=== PATIENT | male | born 1935 | race Caucasian/White ===

== ENCOUNTER → 2016-04-11 | Outpatient (CLI) | payer OTHER ==
[~2016-04-11] MED LIST: ACET-1256 PO; ALL300 PO; ALLO300T2 PO; ATOR-26 PO; CLC6 PO; DOCU-94 PO; DUTA0.5C PO; FERR1CAP2 PO; FURO-85 PO; GABA-113 PO; GLIM4TAB2 PO; ISOS60TA2 PO; LEVO100T7 PO; LEVO75TA5 PO; LOSA100T65 PO; LSX40 PO; NRN600 PO; NRV/10 PO; NTRGSL/4 PO; OXGN; OXYC5TAB PO; PHEN-1043 PO; POTA10CA28 PO; PRLSR20 PO; PSYL0.524 PO; SITA50TA3 PO; TPRSR/50 PO; WARF2.5T8 PO; WARF5TAB7 PO
--- NOTE | 2016-04-11 12:36 | DIAGNOSTIC IMAGING REPORT ---
MRI OF THE LUMBAR SPINE WITHOUT IV CONTRAST CLINICAL HISTORY: Chronic low back pain. COMPARISON STUDY: MRI of the lumbar spine dated 08/27/2014. TECHNIQUE: MRI of the lumbar spine is performed utilizing various T1 and T2-weighted sequences in the axial and sagittal planes. IV contrast was not administered for this examination. FINDINGS: Lumbar spine: Vertebral body height is maintained throughout the lumbar spine. There is minimal retrolisthesis of L1-L2 and L2-L3. Minimal anterolisthesis is present at L4-L5. Small anterior osteophytes are seen throughout. The transverse and spinous processes appear intact. There is no evidence of spondylolysis. No destructive bony lesion is seen. Chronic degenerative endplate change is present at L1-L2, L2-L3, and L3-L4. Mild endplate edema is identified at L1-L2. A Schmorl's node is seen in the inferior endplate of L1. Intervertebral discs: There is degenerative disc desiccation and loss of height throughout the lumbar spine. Loss of height is greatest at L2-L3 through L4-L5. Spinal cord: Partially imaged spinal cord is normal in morphology and signal intensity. The conus medullaris terminates at the level of L1. The nerve roots of the cauda equina are normal in morphology. L1-L2: There is broad-based posterior disc bulge eccentric to the right. There is no significant compromise of the central canal. There is bilateral subarticular stenosis, right greater than left with probable impingement on the exiting bilateral L1 nerve root. Facet arthropathy causes mild bilateral neural foraminal stenosis. L2-L3: There is a small posterior disc bulge with annular fissure. In conjunction with hypertrophy of the ligamentum flavum there is mild acquired compromise of the central canal at this level. The minimum AP diameter measures up to 9.5 mm. There is bilateral subarticular stenosis with possible impingement on the exiting left L2 nerve root. Facet arthropathy causes mild bilateral neural foraminal stenosis. L3-L4: There is a small posterior disc bulge with annular fissure. In conjunction with hypertrophy of the ligamentum flavum there is mild acquired compromise of the central canal at this level. The minimum AP canal diameter measures 7.5 mm. There is mild bilateral subarticular stenosis. Facet arthropathy causes moderate right greater than left neural foraminal stenosis. There may be impingement on the exiting right L3 nerve root. L4-L5: There is a small posterior disc bulge with annular fissure. In conjunction with hypertrophy of the ligamentum flavum there is mild to moderate central canal stenosis at this level. The minimum AP diameter measures 8 mm. There is bilateral subarticular stenosis. There may be impingement on the exiting bilateral L4 nerve roots. Facet arthropathy causes mild bilateral neural foraminal stenosis. L5-S1: There is no significant acquired compromise of the central canal. Facet arthropathy causes bilateral neural foraminal stenosis. Facet joint effusions are identified. Soft tissues: There is fatty atrophy of the paraspinous musculature. The retroperitoneal structures are grossly unremarkable but incompletely evaluated. Cortical atrophy is noted in the partially imaged kidneys. IMPRESSION: 1. No acute bony abnormality is seen. 2. There is no large disc herniation. 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 See discussion for detailed level by level analysis. Findings are similar to the 2015 examination. 3. Degenerative disc disease as above. Endplate edema is identified at L1-L2. Dictated: 04/11/2016 11:42 AM Transcribed: 04/11/2016 12:35 PM Aramis Electronically signed by: Vj Palmer M.D. 04/11/2016 12:43 PM Dictated Date/Time: 04/11/2016 11:42 AM
== END | disposition home or self-care (01) ==
LOC: C.MRI 10:17
PROVIDERS: ATTEND Orthopaedic Surgery Orthopaedic Surgery of the Spine
DX: M54.5 Low back pain (principal)

== ENCOUNTER → 2016-04-24 | Outpatient (CLI) | payer OTHER | END | disposition home or self-care (01) | LOC: C.LABMFLN 13:29 | PROVIDERS: ATTEND Family Medicine | DX: E03.9 Hypothyroidism, unspecified (principal) ==

== ENCOUNTER → 2016-05-17 | Outpatient (CLI) | payer OTHER ==
[2016-05-17 14:23] LABS: URINE APPEARANCE CLOUDY (CLEAR); URINE BILIRUBIN NEG (NEG); URINE COLOR YELLOW; URINE NITRITE NEG (NEG); URINE SPECIFIC GRAVITY 1.015 (1.000-1.030); UROBILINOGEN NEG (NEG)
[2016-05-17 14:34] LABS: MANUAL MICROSCOPIC REQUIRED? NO; REVIEW REQ? NO
[2016-05-17 14:35] LABS: SULFASALICYLIC ACID POS (NEG)
== END | disposition home or self-care (01) ==
LOC: C.LABMFLN 09:21
PROVIDERS: ATTEND Urology
DX: R39.9 Unspecified symptoms and signs involving the genitourinary system (principal)

== ENCOUNTER → 2016-05-29 | Outpatient (CLI) | payer OTHER ==
[2016-05-29 18:19] LABS: BASO % 0.4 %; BASO ABS # 0.03 K/uL (0-0.2); COMPLETE YES; EOS % 7.4 %; HEMATOCRIT 34.9 % (42-52); IG% 0.4 %; LYMPH % 33.6 %; LYMPH ABS # 2.51 K/uL (1.2-3.4); MEAN CELL VOLUME 92.8 fL (80-100); MEAN CORPUSCULAR HEMOGLOBIN 30.6 pg (25-34); MEAN PLATELET VOLUME 11.2 fL (7.4-10.4); MONO % 9.5 %; NEUT % 48.7 %; PLATELET COUNT 284 K/uL (130-400); RED BLOOD COUNT 3.76 M/uL (4.7-6.1); WHITE BLOOD COUNT 7.47 K/uL (4.8-10.8)
[2016-05-29 18:47] LABS: BLOOD UREA NITROGEN 54 mg/dl (7-18); BUN/CREATININE RATIO 18.8 (10-20); CALCIUM 8.9 mg/dl (8.5-10.1); CARBON DIOXIDE 33 mmol/L (21-32); CHLORIDE 100 mmol/L (98-107); GLUCOSE 232 mg/dl (70-99); MAGNESIUM 2.4 mg/dl (1.8-2.4); POTASSIUM 4.6 mmol/L (3.5-5.1); SODIUM 141 mmol/L (136-145)
[2016-05-29 18:53] LABS: TOTAL IRON BINDING CAPACITY 269 mcg/dl (250-450); URIC ACID 5.8 mg/dl (2.6-7.2)
== END | disposition home or self-care (01) ==
LOC: C.LABMFLN 14:40
PROVIDERS: ATTEND Family Medicine
DX: M10.9 Gout, unspecified (principal); I48.91 Unspecified atrial fibrillation; I10 Essential (primary) hypertension; E03.9 Hypothyroidism, unspecified; E11.43 Type 2 diabetes mellitus with diabetic autonomic (poly)neuropathy; E11.42 Type 2 diabetes mellitus with diabetic polyneuropathy; I50.9 Heart failure, unspecified; E78.5 Hyperlipidemia, unspecified; D64.9 Anemia, unspecified

== ENCOUNTER → 2016-06-12 | Outpatient (CLI) | payer OTHER ==
[~2016-06-12] VITALS: Ht 165.1 cm; Wt 87.5 kg
[~2016-06-12] MED LIST changes: +ACET-1311 PO; +AMOX1TAB43 PO; +AMOX875T PO; +FERR1TAB13 PO; +MOMLX PO; +MORP1CAP91 PO; +RXC5 PO; +SODIENE PR
[2016-06-12 14:51] VITALS: Ht 165.1 cm; Wt 87.5 kg
--- NOTE | 2016-06-12 15:48 | PAT Medication Instructions ---
Service Date Jun 12, 2016. Current Home Medication List Acetaminophen (Tylenol), 1,000 MG PO Q6 PRN for Headache or Pain Allopurinol (Allopurinol), 300 MG PO QPM Amlodipine Besylate (Amlodipine Besylate), 10 MG PO QAM Atorvastatin (Lipitor), 80 MG PO HS Colchicine (Colcrys), 0.6 MG PO prn Ferrous Fumarate-Iron Polysacc (Integra F), 1 CAP PO QAM Furosemide (Lasix), 60 MG PO BID Gabapentin (Neurontin), 300 MG PO TID Glimepiride (Glimepiride), 4 MG PO BID Isosorbide Mononitrate (Imdur Ext Rel), 60 MG PO QAM Levothyroxine Sodium (Levothyroxine Sodium), 1 TAB PO QAM Losartan Potassium (Cozaar), 100 MG PO QAM Metoprolol Succinate (Metoprolol Succinate ER), 50 MG PO QAM Nitroglycerin (Nitrostat), 0.4 MG PO UD Omeprazole (Prilosec), 20 MG PO QAM Potassium Chloride (Micro-K Ext Rel), 10 MEQ PO BID Psyllium (Metamucil), 1 DOSE PO QAM Sitagliptin (Januvia), 50 MG PO QAM Warfarin Sod (Jantoven), 5 MG PO QPM Medication Instructions For Your Scheduled Surgery Colchicine (Colcrys), 0.6 MG PO prn (not taking currently) Nitroglycerin (Nitrostat), 0.4 MG PO UD (if needed) Warfarin Sod (Jantoven), 5 MG PO QPM (surgeon's office will call with instructions) - Hold the following medications the morning of surgery: Sitagliptin (Januvia), 50 MG PO QAM Potassium Chloride (Micro-K Ext Rel), 10 MEQ PO BID Psyllium (Metamucil), 1 DOSE PO QAM Losartan Potassium (Cozaar), 100 MG PO QAM Glimepiride (Glimepiride), 4 MG PO BID Furosemide (Lasix), 60 MG PO BID Ferrous Fumarate-Iron Polysacc (Integra F), 1 CAP PO QAM - Take the following medications the morning of surgery with a sip of water: Omeprazole (Prilosec), 20 MG PO QAM Metoprolol Succinate (Metoprolol Succinate ER), 50 MG PO QAM Isosorbide Mononitrate (Imdur Ext Rel), 60 MG PO QAM Levothyroxine Sodium (Levothyroxine Sodium), 1 TAB PO QAM Gabapentin (Neurontin), 300 MG PO TID Amlodipine Besylate (Amlodipine Besylate), 10 MG PO QAM Acetaminophen (Tylenol), 1,000 MG PO Q6 PRN for Headache or Pain (if needed) - Take the following medications as scheduled the night before surgery: Potassium Chloride (Micro-K Ext Rel), 10 MEQ PO BID Glimepiride (Glimepiride), 4 MG PO BID Gabapentin (Neurontin), 300 MG PO TID Furosemide (Lasix), 60 MG PO BID Atorvastatin (Lipitor), 80 MG PO HS Allopurinol (Allopurinol), 300 MG PO QPM Acetaminophen (Tylenol), 1,000 MG PO Q6 PRN for Headache or Pain If you have any questions please call us at [phone] or [phone] ( Masha) or [phone]
[2016-06-12 16:20] LABS: BASO % 0.3 %; BASO ABS # 0.02 K/uL (0-0.2); COMPLETE YES; EOS % 10.2 %; HEMATOCRIT 33.7 % (42-52); IG% 0.3 %; LYMPH % 37.9 %; LYMPH ABS # 2.59 K/uL (1.2-3.4); MEAN CELL VOLUME 94.9 fL (80-100); MEAN CORPUSCULAR HEMOGLOBIN 30.4 pg (25-34); MEAN PLATELET VOLUME 12.1 fL (7.4-10.4); MONO % 5.7 %; NEUT % 45.6 %; PLATELET COUNT 185 K/uL (130-400); RED BLOOD COUNT 3.55 M/uL (4.7-6.1); WHITE BLOOD COUNT 6.84 K/uL (4.8-10.8)
[2016-06-12 16:23] LABS: URINE APPEARANCE CLEAR (CLEAR); URINE BILIRUBIN NEG (NEG); URINE COLOR YELLOW; URINE EPITHELIAL CELL AUTO 0-5 /lpf (0-5); URINE NITRITE NEG (NEG); URINE PH 7.5 (4.5-7.5); URINE SPECIFIC GRAVITY 1.008 (1.000-1.030); UROBILINOGEN NEG (NEG); ZZUR CULT IF INDIC CLEAN CATCH NO
[2016-06-12 16:45] LABS: MANUAL MICROSCOPIC REQUIRED? NO; REVIEW REQ? NO; SULFASALICYLIC ACID POS (NEG)
[2016-06-12 16:54] LABS: BUN/CREATININE RATIO 20.7 (10-20); CALCIUM 9.4 mg/dl (8.5-10.1); CREATININE 2.3 mg/dl (0.60-1.40); POTASSIUM 4.2 mmol/L (3.5-5.1)
--- NOTE | 2016-07-10 07:28 | History & Physical Bridge Note ---
H&P Re-Evaluation Bridge Note: I have examined the patient, reviewed the History & Physical and in the interval since the performance of the History & Physical I have noted the following changes of clinical significance: No changes noted
== END | disposition home or self-care (01) ==
LOC: C.LAB 08:00 → EDSTATUS 07-10 07:45
PROVIDERS: ATTEND Orthopaedic Surgery Orthopaedic Surgery of the Spine
DX: Z01.810 Encounter for preprocedural cardiovascular examination (principal); Z01.812 Encounter for preprocedural laboratory examination

== ENCOUNTER → 2016-06-15 | Outpatient (CLI) | payer OTHER ==
[~2016-06-15] MED LIST changes: -ACET-1311 PO; -AMOX1TAB43 PO; -AMOX875T PO; -DOCU-94 PO; -DUTA0.5C PO; -FERR1TAB13 PO; -LEVO75TA5 PO; -MOMLX PO; -MORP1CAP91 PO; -NRN600 PO; -OXYC5TAB PO; -PHEN-1043 PO; -RXC5 PO; -SODIENE PR
[2016-06-15 14:00] LABS: BLOOD UREA NITROGEN 52 mg/dl (7-18); BUN/CREATININE RATIO 19.9 (10-20); CALCIUM 8.9 mg/dl (8.5-10.1); CARBON DIOXIDE 27 mmol/L (21-32); CHLORIDE 103 mmol/L (98-107); GLUCOSE 328 mg/dl (70-99); POTASSIUM 4.4 mmol/L (3.5-5.1); SODIUM 139 mmol/L (136-145)
[2016-06-15 14:13] LABS: BETA-HYDROXYBUTYRATE 0.97 mg/dL (0.2-2.81)
== END | disposition home or self-care (01) ==
LOC: C.LABMFLN 09:12
PROVIDERS: ATTEND Family Medicine
DX: I25.10 Atherosclerotic heart disease of native coronary artery without angina pectoris (principal); I48.91 Unspecified atrial fibrillation

== ENCOUNTER → 2016-06-20 | Outpatient (CLI) | payer OTHER ==
[2016-06-20 14:03] LABS: BLOOD UREA NITROGEN 42 mg/dl (7-18); BUN/CREATININE RATIO 20.1 (10-20); CALCIUM 9.2 mg/dl (8.5-10.1); CARBON DIOXIDE 29 mmol/L (21-32); CHLORIDE 107 mmol/L (98-107); GLUCOSE 188 mg/dl (70-99); POTASSIUM 4.2 mmol/L (3.5-5.1); SODIUM 144 mmol/L (136-145)
== END | disposition home or self-care (01) ==
LOC: C.LABMFLN 07:36
PROVIDERS: ATTEND Family Medicine
DX: I50.9 Heart failure, unspecified (principal); N25.9 Disorder resulting from impaired renal tubular function, unspecified; I48.91 Unspecified atrial fibrillation

== ENCOUNTER → 2016-07-28 | Outpatient (CLI) | payer OTHER ==
[~2016-07-28] MED LIST changes: +ACET-1311 PO; +AMOX1TAB43 PO; +AMOX875T PO; +FERR1TAB13 PO; +MOMLX PO; +MORP1CAP91 PO; +RXC5 PO; +SODIENE PR
[2016-07-28 13:10] LABS: BASO % 0.3 %; BASO ABS # 0.02 K/uL (0-0.2); COMPLETE YES; EOS % 6.9 %; HEMATOCRIT 33.2 % (42-52); IG% 0.3 %; LYMPH % 28.6 %; LYMPH ABS # 2.06 K/uL (1.2-3.4); MEAN CELL VOLUME 95.4 fL (80-100); MEAN CORPUSCULAR HEMOGLOBIN 30.5 pg (25-34); MEAN CORPUSCULAR HGB CONC 31.9 g/dl (32-36); MEAN PLATELET VOLUME 12.1 fL (7.4-10.4); MONO % 11.4 %; NEUT % 52.5 %; PLATELET COUNT 184 K/uL (130-400); RED BLOOD COUNT 3.48 M/uL (4.7-6.1); WHITE BLOOD COUNT 7.21 K/uL (4.8-10.8)
[2016-07-28 13:34] LABS: CALCIUM 9.1 mg/dl (8.5-10.1)
[2016-07-28 13:39] LABS: ESTIMATED AVERAGE GLUCOSE 177 mg/dl; HA1C FLAG Normal (Normal)
[2016-07-28 13:47] LABS: ALT/SGPT 35 U/L (12-78); AST/SGOT 32 U/L (15-37); BLOOD UREA NITROGEN 37 mg/dl (7-18); BUN/CREATININE RATIO 19.6 (10-20); CARBON DIOXIDE 29 mmol/L (21-32); CHLORIDE 107 mmol/L (98-107); CHOLESTEROL 133 mg/dl (0-200); GLUCOSE 143 mg/dl (70-99); POTASSIUM 3.8 mmol/L (3.5-5.1); SODIUM 143 mmol/L (136-145); TRIGLYCERIDES 177 mg/dl (0-150); VERY LOW DENSITY LIPOPROT CALC 35 mg/dl
[2016-07-28 13:57] LABS: ALB/GLOB RATIO 0.9 (0.9-2); ALKALINE PHOSPHATASE 111 U/L (45-117); CHOLESTEROL/HDL RATIO 3.7; HDL CHOLESTEROL 36 mg/dl; LDL CHOLESTEROL CALCULATED 62 mg/dl
== END | disposition home or self-care (01) ==
LOC: C.LABMFLN 08:53
PROVIDERS: ATTEND Family Medicine
DX: I48.91 Unspecified atrial fibrillation (principal); E78.00 Pure hypercholesterolemia, unspecified; I10 Essential (primary) hypertension; E03.9 Hypothyroidism, unspecified; E11.43 Type 2 diabetes mellitus with diabetic autonomic (poly)neuropathy

== ENCOUNTER → 2016-07-31 | Outpatient (CLI) | payer OTHER ==
[2016-07-31 13:40] LABS: BLOOD UREA NITROGEN 38 mg/dl (7-18); BUN/CREATININE RATIO 17.2 (10-20); CARBON DIOXIDE 28 mmol/L (21-32); CHLORIDE 105 mmol/L (98-107); GLUCOSE 282 mg/dl (70-99); POTASSIUM 4.1 mmol/L (3.5-5.1); SODIUM 142 mmol/L (136-145)
[2016-07-31 13:42] LABS: URINE TOTAL PROTEIN 62.3 mg/dl (0-11.9)
[2016-07-31 13:46] LABS: URINE APPEARANCE CLEAR (CLEAR); URINE BILIRUBIN NEG (NEG); URINE COLOR YELLOW; URINE EPITHELIAL CELL AUTO 0-5 /lpf (0-5); URINE NITRITE NEG (NEG); URINE SPECIFIC GRAVITY 1.013 (1.000-1.030); UROBILINOGEN NEG (NEG)
[2016-07-31 13:49] LABS: FERRITIN 82.3 ng/ml (8.0-388.0); TOTAL IRON BINDING CAPACITY 274 mcg/dl (250-450)
[2016-07-31 13:52] LABS: MANUAL MICROSCOPIC REQUIRED? NO; REVIEW REQ? NO
--- NOTE | 2016-08-07 09:15 | CODING QUERY MEDICAL NECESSITY ---
CQSUPPORTING DIAGNOSIS NEEDED A supporting diagnosis is required for the test/procedure performed on this patient in order for us to be reimbursed by the patient's insurance. Please provide a supporting diagnosis for the following test/procedure listed below next to the test name along with your signature. *If there is no additional diagnosis for this patient that would support the following test/procedure please document that below next to the test/procedure. Test(s)/Procedure(s) that require a supporting diagnosis: THERESA 07/31/16 VITAMIN D TEST Provider Signature: Date: Thank you Alicja Mcmullen Health Information Management Once completed, please kindly fax back to [phone] For questions please call [phone]
== END | disposition home or self-care (01) ==
LOC: C.LABMFLN 08:55
PROVIDERS: ATTEND Internal Medicine Nephrology
DX: N17.9 Acute kidney failure, unspecified (principal); D64.9 Anemia, unspecified; E55.9 Vitamin D deficiency, unspecified

== ENCOUNTER → 2016-09-28 | Outpatient (CLI) | payer OTHER ==
[~2016-09-28] MED LIST changes: -ACET-1311 PO; -AMOX1TAB43 PO; -AMOX875T PO; -FERR1TAB13 PO; -MOMLX PO; -MORP1CAP91 PO; -RXC5 PO; -SODIENE PR
[2016-09-28 13:16] LABS: BASO % 0.2 %; BASO ABS # 0.01 K/uL (0-0.2); COMPLETE YES; EOS % 7.1 %; HEMATOCRIT 31.9 % (42-52); LYMPH % 34.4 %; LYMPH ABS # 1.88 K/uL (1.2-3.4); MEAN CELL VOLUME 96.7 fL (80-100); MEAN CORPUSCULAR HEMOGLOBIN 30.3 pg (25-34); MEAN CORPUSCULAR HGB CONC 31.3 g/dl (32-36); MEAN PLATELET VOLUME 11.8 fL (7.4-10.4); MONO % 9.3 %; PLATELET COUNT 160 K/uL (130-400); WHITE BLOOD COUNT 5.46 K/uL (4.8-10.8)
[2016-09-28 13:25] LABS: BLOOD UREA NITROGEN 37 mg/dl (7-18); CARBON DIOXIDE 27 mmol/L (21-32); CHLORIDE 108 mmol/L (98-107); GLUCOSE 277 mg/dl (70-99); POTASSIUM 3.9 mmol/L (3.5-5.1); SODIUM 142 mmol/L (136-145)
[2016-09-28 13:32] LABS: CALCIUM 9.2 mg/dl (8.5-10.1)
== END | disposition home or self-care (01) ==
LOC: C.LABMFLN 08:27
PROVIDERS: ATTEND Family Medicine
DX: R06.00 Dyspnea, unspecified (principal); I48.91 Unspecified atrial fibrillation

== ENCOUNTER → 2016-10-26 | Outpatient (CLI) | payer OTHER ==
[2016-10-26 14:29] LABS: BLOOD UREA NITROGEN 34 mg/dl (7-18); BUN/CREATININE RATIO 16.2 (10-20); CALCIUM 8.8 mg/dl (8.5-10.1); CARBON DIOXIDE 28 mmol/L (21-32); CHLORIDE 106 mmol/L (98-107); GLUCOSE 166 mg/dl (70-99); POTASSIUM 3.9 mmol/L (3.5-5.1); SODIUM 144 mmol/L (136-145)
[2016-10-26 14:31] LABS: BASO % 0.2 %; BASO ABS # 0.01 K/uL (0-0.2); COMPLETE YES; EOS % 7.4 %; HEMATOCRIT 35.1 % (42-52); IG% 0.4 %; LYMPH % 31.3 %; LYMPH ABS # 1.69 K/uL (1.2-3.4); MEAN CELL VOLUME 95.9 fL (80-100); MEAN CORPUSCULAR HEMOGLOBIN 30.6 pg (25-34); MEAN CORPUSCULAR HGB CONC 31.9 g/dl (32-36); MEAN PLATELET VOLUME 12.8 fL (7.4-10.4); MONO % 11.1 %; NEUT % 49.6 %; PLATELET COUNT 147 K/uL (130-400); RED BLOOD COUNT 3.66 M/uL (4.7-6.1)
[2016-10-26 14:39] LABS: TOTAL IRON BINDING CAPACITY 319 mcg/dl (250-450)
[2016-10-27 07:59] LABS: ESTIMATED AVERAGE GLUCOSE 180 mg/dl; HA1C FLAG Normal (Normal)
--- NOTE | 2016-11-09 07:18 | CODING QUERY MEDICAL NECESSITY ---
SUPPORTING DIAGNOSIS NEEDED A supporting diagnosis is required for the test/procedure performed on this patient in order for us to be reimbursed by the patient's insurance. Please provide a supporting diagnosis for the following test/procedure listed below next to the test name along with your signature. *If there is no additional diagnosis for this patient that would support the following test/procedure please document that below next to the test/procedure. Test(s)/Procedure(s) that require a supporting diagnosis: * VITAMIN D, 25-HYDROXY DIAGNOSIS: Provider Signature: Date: Thank you Emma Stevens [employer] Once completed, please kindly fax back to [phone] For questions please call [phone]
== END | disposition home or self-care (01) ==
LOC: C.LABMFLN 08:02
PROVIDERS: ATTEND Family Medicine
DX: E78.00 Pure hypercholesterolemia, unspecified (principal); I10 Essential (primary) hypertension; D64.9 Anemia, unspecified; E03.9 Hypothyroidism, unspecified; I48.0 Paroxysmal atrial fibrillation; E11.43 Type 2 diabetes mellitus with diabetic autonomic (poly)neuropathy; E55.9 Vitamin D deficiency, unspecified

== ENCOUNTER 2016-12-27 07:20 | Day surgery (SDC) | payer OTHER ==
[2016-12-05 13:30] VITALS: BMI 31.0
[2016-12-05 14:01] LABS: BASO % 0.4 %; BASO ABS # 0.03 K/uL (0-0.2); COMPLETE YES; EOS % 3.7 %; HEMATOCRIT 38.8 % (42-52); IG% 0.3 %; LYMPH % 35.8 %; MEAN CELL VOLUME 93.3 fL (80-100); MEAN CORPUSCULAR HEMOGLOBIN 29.8 pg (25-34); MONO % 7.9 %; NEUT % 51.9 %; PLATELET COUNT 181 K/uL (130-400); RED BLOOD COUNT 4.16 M/uL (4.7-6.1); WHITE BLOOD COUNT 6.98 K/uL (4.8-10.8)
--- NOTE | 2016-12-05 14:17 | PAT Medication Instructions ---
Service Date Dec 05, 2016. Current Home Medication List Acetaminophen (Tylenol), 1,000 MG PO Q6 PRN for Headache or Pain Allopurinol (Allopurinol), Unknown Dose PO QPM Amlodipine Besylate (Amlodipine Besylate), 10 MG PO QAM Atorvastatin (Lipitor), 80 MG PO HS Colchicine (Colcrys), 0.6 MG PO prn Ferrous Fumarate-Iron Polysacc (Integra F), 1 CAP PO QAM Furosemide (Furosemide), 1 TAB PO BID Gabapentin (Neurontin), 300 MG PO TID Glimepiride (Glimepiride), 4 MG PO BID Isosorbide Mononitrate (Imdur Ext Rel), 60 MG PO QAM Levothyroxine Sodium (Levothyroxine Sodium), 1 TAB PO QAM Losartan Potassium (Cozaar), 100 MG PO QAM Metoprolol Succinate (Metoprolol Succinate ER), 50 MG PO QAM Nitroglycerin (Nitrostat), 0.4 MG PO UD Omeprazole (Prilosec), 20 MG PO QAM Psyllium (Metamucil), 1 DOSE PO QAM Sitagliptin (Januvia), 50 MG PO QAM Warfarin Sod (Jantoven), 5 MG PO [id number] Warfarin Sod (Jantoven), 2.5 MG PO MONDAYS Medication Instructions For Your Scheduled Surgery - Check with surgeon/hat finishing materials preparer for instructions: Warfarin Sod (Jantoven), 5 MG PO [id number] Warfarin Sod (Aprtoven), 2.5 MG PO MONDAYS - Hold the following medications 24 hours prior to surgery: Colchicine (Colcrys), 0.6 MG PO prn - Hold the following medications the morning of surgery: Ferrous Fumarate-Iron Polysacc (Integra F), 1 CAP PO QAM Furosemide (Furosemide), 1 TAB PO BID Glimepiride (Glimepiride), 4 MG PO BID Losartan Potassium (Cozaar), 100 MG PO QAM Psyllium (Metamucil), 1 DOSE PO QAM Sitagliptin (Januvia), 50 MG PO QAM - Take the following medications the morning of surgery with a sip of water: Omeprazole (Prilosec), 20 MG PO QAM Metoprolol Succinate (Metoprolol Succinate ER), 50 MG PO QAM Nitroglycerin (Nitrostat), 0.4 MG PO UD Isosorbide Mononitrate (Imdur Ext Rel), 60 MG PO QAM Levothyroxine Sodium (Levothyroxine Sodium), 1 TAB PO QAM Gabapentin (Neurontin), 300 MG PO TID Amlodipine Besylate (Amlodipine Besylate), 10 MG PO QAM Acetaminophen (Tylenol), 1,000 MG PO Q6 PRN for Headache or Pain (if needed) - Take the following medications as scheduled the night before surgery: Nitroglycerin (Nitrostat), 0.4 MG PO UD Glimepiride (Glimepiride), 4 MG PO BID Gabapentin (Neurontin), 300 MG PO TID Furosemide (Furosemide), 1 TAB PO BID Atorvastatin (Lipitor), 80 MG PO HS Allopurinol (Allopurinol), Unknown Dose PO QPM Acetaminophen (Tylenol), 1,000 MG PO Q6 PRN for Headache or Pain (if needed) If you have any questions please call us at [phone] or [phone] or [phone]
[2016-12-05 14:18] LABS: BUN/CREATININE RATIO 15.9 (10-20); CALCIUM 9.2 mg/dl (8.5-10.1); CREATININE 1.8 mg/dl (0.60-1.40); POTASSIUM 3.6 mmol/L (3.5-5.1)
[2016-12-05 14:24] LABS: URINE APPEARANCE CLEAR (CLEAR); URINE BILIRUBIN NEG (NEG); URINE COLOR YELLOW; URINE EPITHELIAL CELL AUTO 20-30 /lpf (0-5); URINE NITRITE NEG (NEG); URINE PH 6.5 (4.5-7.5); URINE SPECIFIC GRAVITY 1.015 (1.000-1.030); UROBILINOGEN NEG (NEG); ZZUR CULT IF INDIC CLEAN CATCH NO
[2016-12-05 14:34] LABS: MANUAL MICROSCOPIC REQUIRED? NO; REVIEW REQ? NO
[~2016-12-27] VITALS: Ht 162.6 cm; Wt 84.1 kg
[~2016-12-27 07:20] MED LIST changes: -ALLO300T2 PO; +CEFAZOLIN 2000 MG/60 ML D5W IV SCH; -FURO-85 PO; +LACTATED RINGER'S 1000ML 1,000 ML IV SCH; -OXGN; -POTA10CA28 PO
[2016-12-27 08:00] VITALS: BP 159/87; PULSE 49; TEMP 36.4; O2SAT 93; Ht 162.6 cm; Wt 84.1 kg
[2016-12-27] MEDS ORDERED: ALLO300T2 PO (08:04)
[2016-12-27] MEDS ORDERED: FENTANYL CITRATE INJ 50 MCG/1 ML 2 ML VIAL ONE (08:09)
[2016-12-27] MEDS ORDERED: MIDAZOLAM HCL 1 MG/ML 2ML VIAL ONE (08:09)
[2016-12-27] MEDS ORDERED: OXGN (08:10)
[2016-12-27 08:18] LABS: INR 1.9 (0.9-1.1); PARTIAL THROMBOPLASTIN RATIO 1.5; PROTHROMBIN TIME (PATIENT) 20.7 SECONDS (9.0-12.0)
--- NOTE | 2016-12-27 08:58 | DIAGNOSTIC IMAGING REPORT ---
CHEST ONE VIEW PORTABLE HISTORY: Crackles COMPARISON: Chest 08/17/2015. FINDINGS: No pneumothorax. The heart remains mildly enlarged. There is mild central pulmonary vascular congestion without overt edema. This remains unchanged. Punctate calcified granuloma within the left lung apex. Left shoulder prosthesis. No pleural effusions. Poststernotomy changes. IMPRESSION: No change in the mild cardiomegaly and mild central pulmonary vascular congestion without overt edema. Electronically signed by: Brett Braun M.D. 12/27/2016 8:57 AM Dictated Date/Time: 12/27/2016 8:42 AM
--- NOTE | 2016-12-27 09:37 | Progress Note ---
Progress Note Date of Service Dec 27, 2016. Progress Note Patient arrived today for scheduled L3 to S1 decompression and Iliac bolts with Dr. Riddle. Vitals were significant for O2 sats 85 to 88% on room air. Patient was afebrile. Patient reports new productive cough and exam was notable for crackles in right lower lobe. Oxygenation improved to 92% on 2-3 LPM NC. CXR was negative. Labs were notable for INR of 1.9 despite being off coumadin for 5 days. Decision made to reschedule surgery based on both elevated INR and new oxygen requirement in the setting of acute URI. Patient has home oxygen and was discharged with oxygen for trip home. Appointment made with , patient's primary care physician to be seen this afternoon at 3PM. In addition, PAT was contacted and they will call later today or tomorrow to set up an anesthesia follow-up appointment for next week. Patient to restart coumadin in the interim, but PAT will need to speak with cardiology to discuss whether a 5 day pause will be enough time off coumadin next time, since INR was higher than optimal for surgery today. Geovanna Velasquez MD, PhD Anesthesiology
== END 2016-12-27 09:25 | disposition home or self-care (01) ==
LOC: C.ACU 07:20
PROVIDERS: ATTEND Orthopaedic Surgery Orthopaedic Surgery of the Spine
DX: Z53.8 Procedure and treatment not carried out for other reasons (principal); J06.9 Acute upper respiratory infection, unspecified; D68.59 Other primary thrombophilia; Z79.01 Long term (current) use of anticoagulants

== ENCOUNTER → 2017-01-12 | Outpatient (CLI) | payer OTHER ==
[~2017-01-12] MED LIST changes: -ALL300 PO; +ALLO300T2 PO; -CEFAZOLIN 2000 MG/60 ML D5W IV SCH; -LACTATED RINGER'S 1000ML 1,000 ML IV SCH; +OXGN
[2017-01-12 17:44] LABS: BASO % 0.4 %; BASO ABS # 0.03 K/uL (0-0.2); COMPLETE YES; EOS % 5.9 %; HEMATOCRIT 36.8 % (42-52); IG% 0.4 %; LYMPH % 36.6 %; LYMPH ABS # 2.99 K/uL (1.2-3.4); MEAN CELL VOLUME 92.2 fL (80-100); MEAN CORPUSCULAR HEMOGLOBIN 30.8 pg (25-34); MEAN CORPUSCULAR HGB CONC 33.4 g/dl (32-36); MEAN PLATELET VOLUME 12.5 fL (7.4-10.4); MONO % 9.9 %; NEUT % 46.8 %; PLATELET COUNT 173 K/uL (130-400); RED BLOOD COUNT 3.99 M/uL (4.7-6.1); WHITE BLOOD COUNT 8.17 K/uL (4.8-10.8)
[2017-01-12 17:48] LABS: BLOOD UREA NITROGEN 45 mg/dl (7-18); BUN/CREATININE RATIO 21.5 (10-20); CARBON DIOXIDE 29 mmol/L (21-32); CHLORIDE 105 mmol/L (98-107); GLUCOSE 165 mg/dl (70-99); PHOSPHORUS 4.1 mg/dl (2.5-4.9); POTASSIUM 3.7 mmol/L (3.5-5.1); SODIUM 141 mmol/L (136-145)
[2017-01-12 18:01] LABS: URINE APPEARANCE CLEAR (CLEAR); URINE BILIRUBIN NEG (NEG); URINE COLOR YELLOW; URINE NITRITE NEG (NEG); URINE SPECIFIC GRAVITY 1.016 (1.000-1.030); UROBILINOGEN NEG (NEG)
[2017-01-12 18:02] LABS: MANUAL MICROSCOPIC REQUIRED? NO; REVIEW REQ? NO
[2017-01-12 18:07] LABS: URINE APPEARANCE CLEAR (CLEAR); URINE BILIRUBIN NEG (NEG); URINE COLOR YELLOW; URINE NITRITE NEG (NEG); URINE SPECIFIC GRAVITY 1.015 (1.000-1.030); UROBILINOGEN NEG (NEG)
[2017-01-12 18:08] LABS: MANUAL MICROSCOPIC REQUIRED? NO; REVIEW REQ? NO
== END | disposition home or self-care (01) ==
LOC: C.LABMFLN 14:45
PROVIDERS: ATTEND Orthopaedic Surgery Orthopaedic Surgery of the Spine
DX: M48.061 Spinal stenosis, lumbar region without neurogenic claudication (principal)

== ENCOUNTER → 2017-03-27 | Outpatient (CLI) | payer OTHER ==
[~2017-03-27] MED LIST changes: +ACET-1138 PO; -ACET-1256 PO; +ACET-1311 PO; +ALL300 PO; +ASPI81TA28 PO; +CHOL1000 PO; +COLC0.6T54 PO; +CPR/500 PO; -FERR1CAP2 PO; +FERR1TAB13 PO; +FERR324T15 PO; +FRS/40 PO; +FURO-85 PO; +GABA-1219 PO; +ISOS60TA25 PO; +MOMLX PO; -NTRGSL/4 PO; +NTRGSL/4 UT; +OMEP20CA9 PO; +ONGLYZA PO; +POLY335019 PO; +SITA50TA PO; +SODIENE PR; +TRAM-10 PO; +ULT50 PO; +WARF1TAB6 PO
[2017-04-04 18:32] LABS: FECAL OCCULT BLOOD #1 NEGATIVE (NEGATIVE); FECAL OCCULT BLOOD #2 NEGATIVE (NEGATIVE); FECAL OCCULT BLOOD #3 NEGATIVE (NEGATIVE)
== END | disposition home or self-care (01) ==
LOC: C.LABSPEC 18:02
PROVIDERS: ATTEND Family Medicine
DX: M10.9 Gout, unspecified (principal); I48.91 Unspecified atrial fibrillation; D64.9 Anemia, unspecified; M54.9 Dorsalgia, unspecified; E03.9 Hypothyroidism, unspecified

== ENCOUNTER → 2017-03-27 | Outpatient (CLI) | payer OTHER ==
[~2017-03-27] MED LIST changes: -ACET-1138 PO; -ALL300 PO; -ASPI81TA28 PO; -CHOL1000 PO; -COLC0.6T54 PO; -CPR/500 PO; -FERR324T15 PO; -FRS/40 PO; -FURO-85 PO; -GABA-1219 PO; -ISOS60TA25 PO; -NTRGSL/4 UT; -OMEP20CA9 PO; -ONGLYZA PO; -OXGN; -POLY335019 PO; -SITA50TA PO; -TRAM-10 PO; -ULT50 PO; -WARF1TAB6 PO
[2017-03-27 17:47] LABS: ALT/SGPT 21 U/L (12-78); BLOOD UREA NITROGEN 36 mg/dl (7-18); BUN/CREATININE RATIO 20.5 (10-20); CALCIUM 8.8 mg/dl (8.5-10.1); CARBON DIOXIDE 31 mmol/L (21-32); CHLORIDE 107 mmol/L (98-107); CREATININE 1.76 mg/dl (0.60-1.40); GLUCOSE 163 mg/dl (70-99); POTASSIUM 3.8 mmol/L (3.5-5.1); SODIUM 145 mmol/L (136-145)
[2017-03-27 17:57] LABS: ALB/GLOB RATIO 0.7 (0.9-2); ALKALINE PHOSPHATASE 161 U/L (45-117); AST/SGOT 25 U/L (15-37); TOTAL IRON BINDING CAPACITY 251 mcg/dl (250-450)
[2017-03-27 18:17] LABS: BASO % 0.3 %; BASO ABS # 0.02 K/uL (0-0.2); EOS % 6.3 %; HEMATOCRIT 27.2 % (42-52); IG% 0.7 %; LYMPH ABS # 1.62 K/uL (1.2-3.4); MEAN CELL VOLUME 96.1 fL (80-100); MEAN CORPUSCULAR HGB CONC 31.3 g/dl (32-36); MEAN PLATELET VOLUME 10.6 fL (7.4-10.4); MONO % 9.4 %; NEUT % 61.3 %; PLATELET COUNT 259 K/uL (130-400); RED BLOOD COUNT 2.83 M/uL (4.7-6.1); WHITE BLOOD COUNT 7.36 K/uL (4.8-10.8)
[2017-03-27 19:19] LABS: ANISOCYTOSIS PRESENT; COMPLETE YES; OVALOCYTES 1+
== END | disposition home or self-care (01) ==
LOC: C.LABMFLN 16:30
PROVIDERS: ATTEND Family Medicine
DX: M10.9 Gout, unspecified (principal); I48.91 Unspecified atrial fibrillation; D64.9 Anemia, unspecified; M54.9 Dorsalgia, unspecified; E03.9 Hypothyroidism, unspecified

== ENCOUNTER → 2017-04-18 | Outpatient (CLI) | payer OTHER ==
[2017-04-18 17:43] LABS: HEMATOCRIT 33.5 % (42-52); HEMOGLOBIN 10.8 g/dL (14.0-18.0)
[2017-04-18 18:15] LABS: BLOOD UREA NITROGEN 37 mg/dl (7-18); CALCIUM 9.4 mg/dl (8.5-10.1); CARBON DIOXIDE 32 mmol/L (21-32); CREATININE 2.04 mg/dl (0.60-1.40); GLUCOSE 118 mg/dl (70-99); POTASSIUM 4.7 mmol/L (3.5-5.1); SODIUM 139 mmol/L (136-145)
== END | disposition home or self-care (01) ==
LOC: C.LABMFLN 14:28
PROVIDERS: ATTEND Family Medicine
DX: I50.9 Heart failure, unspecified (principal); D64.9 Anemia, unspecified

== ENCOUNTER 2017-05-28 09:46 | Emergency (ER) | payer OTHER ==
[~2017-05-28] VITALS: Ht 165.1 cm; Wt 81.0 kg
[2017-05-28 09:59] VITALS: Ht 165.1 cm; Wt 81.0 kg
--- NOTE | 2017-05-28 10:40 | EMERGENCY ROOM VISIT NOTE ---
History Report prepared by Verito: Maverick Gilliam Under the Supervision of: Dr. Kb Hooper D.O. First contact with patient: 10:04 Chief Complaint: LEG PAIN,LEG INJURY Stated Complaint: PAIN DOWN LEFT LEG History of Present Illness The patient is a 82 year old male who presents to the Emergency Room with complaints of worsening sharp pain to the left leg that began two months ago. He has a past medical history of lower back surgery in January 2017. Since then , the patient has been having constant pain in his lower back and his left leg. However, over the past two days, his pain began to be more severe with associated numbness from his left hip to the knee. He has been taking Tramadol to try to help relieve his pain, and notes that it has helped. His pain is exacerbated with movement. He notes that he is dizzy as well. He denies any headaches, chest pain, shortness of breath, or abdominal pain. He has an appointment with Dr. Doshi in 1 week, and states that he cannot wait that long. He has not contacted his PCP for this issue. He is not currently on any Steroids. Source of History: patient Onset: 2 months ago Position: leg (left) Symptom Intensity: severe Quality: sharp Timing: worsening Associated Symptoms: + back pain (lower), + numbness, No headache, No chest pain, No SOB, No abdominal pain Note: He states that he is dizzy. Review of Systems See HPI for pertinent positives & negatives. A total of 10 systems reviewed and were otherwise negative. Past Medical & Surgical Medical Problems: (1) Atrial Fibrillation (2) BPH (benign prostatic hyperplasia) (3) Congestive Heart Failure Nos (4) Diabetes (5) Esophageal Reflux (6) Hypertension (7) Hypertension Nos (8) Lumbar stenosis with neurogenic claudication (9) Pneumonia Surgical Problems: (1) H/O prostatectomy (2) History of rotator cuff surgery Family History Diabetes mellitus Heart disease Hypertension Social History Smoking Status: Never Smoker Drug Use: none Marital Status: Housing Status: lives with significant other Occupation Status: retired Current/Historical Medications Scheduled Amlodipine Besylate (Amlodipine Besylate), 10 MG PO QAM Atorvastatin (Lipitor), 80 MG PO DAILY Colchicine (Colcrys), 0.6 MG PO DAILY Ferrous Fumarate (Ferrous Fumarate 324), 324 MG PO DAILY Furosemide (Lasix), 60 MG PO BID Gabapentin (Neurontin), 300 MG PO TID Glimepiride (Glimepiride), 4 MG PO BID Isosorbide Mononitrate (Imdur Ext Rel), 60 MG PO QAM Levothyroxine Sodium (Levothyroxine Sodium), 100 MCG PO QAM Losartan Potassium (Cozaar), 100 MG PO QAM Metoprolol Succinate (Metoprolol Succinate ER), 50 MG PO QAM Omeprazole (Prilosec), 20 MG PO QAM Sitagliptin (Januvia), 50 MG PO QAM Warfarin Sod (Jantoven), 5 MG PO DAILY Warfarin Sod (Jantoven), 1 MG PO UD Scheduled PRN Acetaminophen (Tylenol Extra Strength), 1,000 MG PO Q6 PRN for Pain Nitroglycerin (Nitrostat), 0.4 MG UT PRN PRN for Chest Pain Polyethylene Glycol 3350 (Miralax), 17 GM PO DAILY PRN for Constipation Tramadol (Ultram), 1-2 TABS PO Q6 PRN for Pain Allergies Coded Allergies: Adhesives (Verified Adverse Reaction, Intermediate, TEARS SKIN WITH TAPE- ARMS, 05/28/17) Colestipol (Verified Adverse Reaction, Mild, Sleepiness, 05/28/17) Simvastatin (Verified Adverse Reaction, Mild, Sleepiness, 05/28/17) Physical Exam Vital Signs Date Time Temp Pulse Resp B/P (MAP) Pulse Ox O2 Delivery O2 Flow Rate FiO2 05/28/17 15:37 36.3 60 18 116/86 94 05/28/17 14:25 54 18 133/70 97 Room Air 05/28/17 13:03 53 18 129/81 99 Room Air 05/28/17 11:33 55 18 141/72 95 Room Air 05/28/17 11:00 59 05/28/17 10:39 58 18 152/73 97 Room Air 05/28/17 09:59 36.3 57 18 114/63 97 Room Air Physical Exam GENERAL: Patient is awake, alert, and in no acute distress. Patient is resting comfortably and showing no signs of anxiety EYES: The conjunctivae are clear. The pupils are round and reactive. EARS, NOSE, MOUTH AND THROAT: The nose is without any evidence of any deformity. Mucous membranes are moist tongue is midline NECK: The neck is nontender and supple. RESPIRATORY: Normal respiratory effort is noted there is no evidence of wheezing rhonchi or rales CARDIOVASCULAR: Regular rate and rhythm noted there no murmurs rubs or gallops normal S1 normal S2 GASTROINTESTINAL: The abdomen is soft. Bowel sounds are present in all quadrants. Abdomen is nontender BACK: There is a surgical scar noted to the lumbar spine. No erythema, drainage , or dehiscence. No midline tenderness or or step-off noted range of motion in flexion extension as well as rotation no signs of muscle spasm noted MUSCULOSKELETAL/EXTREMITIES: There is no evidence of gross deformity full range of motion is noted in the hips and shoulders SKIN: Pedal edema bilaterally. There is no obvious evidence of any rash. There are no petechiae, pallor or cyanosis noted. NEUROLOGIC: Patient is awake alert and oriented x3. Patellar tendon reflexes 1 + bilaterally. Achilles tendon reflexes 1+ bilaterally. Great toe raise is symmetric. Medical Decision & Procedures ER Provider Diagnostic Interpretation: Radiology results as stated below per my review and radiologist interpretation: MRI OF THE LUMBAR SPINE WITHOUT CONTRAST CLINICAL HISTORY: Recent surgery. Left lower extremity radiculopathy. COMPARISON STUDY: MRI of the lumbar spine April 11, [address] February 27, 2017. TECHNIQUE: Utilizing a 1.5 Aida magnet and dedicated coil, multiplanar, multiecho imaging of the lumbar spine was performed without IV contrast. FINDINGS: For purposes of numbering on this exam, the L5-S1 disc space is assigned to axial image 23 of 25. There are postoperative findings consistent with a L3-S1 laminectomy, L4-L5 discectomy with interbody spacer placement and bilateral pedicle screw fusion from L3 through S1. There is mild marrow signal abnormality along the superior endplate of L5 with slight concavity of the superior plate of L5. Old T11 compression deformity is noted. There is no intracanalicular mass or fluid collection. The conus terminates at the L1-L2 level. Note is made of a 5.6 x 3.6 x 2.3 cm laminectomy bed fluid collection. L1-2: There is moderate disc space narrowing with disc bulge, ligamentous hypertrophy and facet arthrosis. There is mild narrowing of the central canal and lateral recesses with severe right and moderate left neural foraminal stenosis L2-3: There is marked disc space narrowing with disc bulge, ligamentous hypertrophy and facet arthrosis which has progressed since MRI of April 11, 2016. This results in moderate narrowing of the central canal, lateral recesses and neural foramen. L3-4: There is no residual central canal stenosis. The neural foramen are patent. L4-5: No residual central canal stenosis. There is mild bilateral neural foraminal stenosis. L5-S1: The central canal and neural foramen are patent. IMPRESSION: 1. Status post L3-S1 decompression, bilateral posterior fusion and L4-L5 discectomy. 5.6 x 3.6 x 2.3 cm laminectomy bed fluid collection which is nonspecific although likely reflects a seroma. A pseudomeningocele could appear similar although is considered less likely. Sterility cannot be assessed by MRI. 2. Moderate central canal and lateral recess and neural foraminal stenosis at L2-L3 due to disc bulge, ligamentous hypertrophy and facet arthrosis which has progressed since MRI of April 11, 2016. 3. Slight concavity of the superior endplate of L5 with minimal adjacent marrow signal abnormality which is likely related to spacer placement. Electronically signed by: Juan Luis Pinto M.D. 05/28/2017 12:47 PM Dictated Date/Time: 05/28/2017 12:34 PM Laboratory Results 05/28/17 10:30 Red Blood Count 3.84, Mean Corpuscular Volume 89.6, Mean Corpuscular Hemoglobin 29.7, Mean Corpuscular Hemoglobin Concent 33.1, Mean Platelet Volume 10.6, Neutrophils (%) (Auto) 52.2, Lymphocytes (%) (Auto) 34.3, Monocytes (%) (Auto) 8.3, Eosinophils (%) (Auto) 4.6, Basophils (%) (Auto) 0.2, Neutrophils # (Auto) 4.37, Lymphocytes # (Auto) 2.88, Monocytes # (Auto) 0.70, Eosinophils # (Auto) 0.39, Basophils # (Auto) 0.02 05/28/17 10:30 Test 05/28/17 10:30 05/28/17 11:33 White Blood Count 8.39 K/uL (4.8-10.8) Red Blood Count 3.84 M/uL (4.7-6.1) Hemoglobin 11.4 g/dL (14.0-18.0) Hematocrit 34.4 % (42-52) Mean Corpuscular Volume 89.6 fL (80-100) Mean Corpuscular Hemoglobin 29.7 pg (25-34) Mean Corpuscular Hemoglobin Concent 33.1 g/dl (32-36) Platelet Count 184 K/uL (130-400) Mean Platelet Volume 10.6 fL (7.4-10.4) Neutrophils (%) (Auto) 52.2 % Lymphocytes (%) (Auto) 34.3 % Monocytes (%) (Auto) 8.3 % Eosinophils (%) (Auto) 4.6 % Basophils (%) (Auto) 0.2 % Neutrophils # (Auto) 4.37 K/uL (1.4-6.5) Lymphocytes # (Auto) 2.88 K/uL (1.2-3.4) Monocytes # (Auto) 0.70 K/uL (0.11-0.59) Eosinophils # (Auto) 0.39 K/uL (0-0.5) Basophils # (Auto) 0.02 K/uL (0-0.2) RDW Standard Deviation 50.4 fL (36.4-46.3) RDW Coefficient of Variation 15.6 % (11.5-14.5) Immature Granulocyte % (Auto) 0.4 % Immature Granulocyte # (Auto) 0.03 K/uL (0.00-0.02) Prothrombin Time 27.7 SECONDS (9.0-12.0) Prothromb Time International Ratio 2.7 (0.9-1.1) Activated Partial Thromboplast Time 43.7 SECONDS (21.0-31.0) Partial Thromboplastin Ratio 1.7 Anion Gap 10.0 mmol/L (3-11) Est Creatinine Clear Calc Drug Dose 25.8 ml/min Estimated GFR () 31.4 Estimated GFR (Non- 27.1 BUN/Creatinine Ratio 19.6 (10-20) Calcium Level 9.1 mg/dl (8.5-10.1) Total Bilirubin 0.5 mg/dl (0.2-1) Direct Bilirubin 0.1 mg/dl (0-0.2) Aspartate Amino Transf (AST/SGOT) 24 U/L (15-37) Alanine Aminotransferase (ALT/SGPT) 22 U/L (12-78) Alkaline Phosphatase 128 U/L (45-117) Total Protein 7.7 gm/dl (6.4-8.2) Albumin 4.1 gm/dl (3.4-5.0) Lipase 78 U/L (73-393) Urine Color YELLOW Urine Appearance SL CLOUDY (CLEAR) Urine pH 5.5 (4.5-7.5) Urine Specific [place] 1.015 (1.000-1.030) Urine Protein 2+ (NEG) Urine Glucose (UA) NEG (NEG) Urine Ketones NEG (NEG) Urine Occult Blood TRACE (NEG) Urine Nitrite NEG (NEG) Urine Bilirubin NEG (NEG) Urine Urobilinogen NEG (NEG) Urine Leukocyte Esterase TRACE (NEG) Laboratory results per my review. Medications Administered Medications (Trade) Dose Ordered Sig/Andrea Route Start Time Stop Time Status Last Admin Dose Admin Tramadol HCl (Ultram Tab) 50 mg NOW STAT PO 05/28/17 11:22 05/28/17 11:23 DC 05/28/17 11:22 50 MG ED Course 1004: The patient was evaluated in room C3. A complete history and physical examination were performed. 1122: Ordered Ultram Tab 50 mg PO 1435: Upon reevaluation, the patient is resting. I discussed the results and treatment plan with him. He verbalized agreement of the treatment plan. He was discharged home. Medical Decision Differential diagnosis: Etiologies such as musculoskeletal, disc herniation, fracture, aortic disease, metastatic disease, cord compression, discitis, infection, renal colic, gastrointestinal, acute exacerbation of chronic back pain, sciatica, cauda equina, as well as others were entertained. Nursing notes reviewed. Additional history is obtained from the patient's significant other. The patient is an 82-year-old male who presented to the emergency department for an evaluation of back pain and left thigh pain. The patient did not appear to have signs of DVT. He has no swelling or pain over the vascular bundle but he did have discomfort over the lateral aspect of his hip. He appeared to have no definite signs of infection over surgical site. MRI was performed and showed some fluid collection at the postsurgical site which I feel is more likely consistent with seroma or postoperative healing. I discussed the patient 's laboratory and radiographic studies with him. He was treated with pain medication in the emergency department. I discussed his case with his spinal surgeon. He has agreed to evaluate the patient in the office for further evaluation. The patient was encouraged to return to the emergency department immediately if symptoms change worsen or the need arises. Medication Reconcilliation Current Medication List: was personally reviewed by me Blood Pressure Screening Patient's blood pressure: Elevated blood pressure Blood pressure disposition: Elevated BP felt to be situational Impression Primary Impression: Lumbar radiculopathy Additional Impressions: Post-operative pain Pain of left lower extremity Scribe Attestation The scribe's documentation has been prepared under my direction and personally reviewed by me in its entirety. I confirm that the note above accurately reflects all work, treatment, procedures, and medical decision making performed by me. Departure Information Dispostion Home / Self-Care Prescriptions Tramadol (Ultram) 50 Mg Tab 1-2 TABS PO Q6 Y for Pain, #25 TAB Prov: Kb Hooper, DO 05/28/17 Referrals Vj Malone M.D. (PCP) Rafiq DoshiD.O. Forms HOME CARE DOCUMENTATION FORM, IMPORTANT VISIT INFORMATION Patient Instructions ED Post Op Pain, Lumbar Radiculopathy, [facility] Additional Instructions Continue all medications as prescribed. Follow-up with Dr. Doshi as scheduled. Rest and avoid any strenuous activity. Drink plenty of clear liquids. Return to the emergency department immediately if symptoms change or worsen or the need arises. Problem Qualifiers
[2017-05-28 10:51] LABS: BASO % 0.2 %; BASO ABS # 0.02 K/uL (0-0.2); EOS % 4.6 %; EOS ABS # 0.39 K/uL (0-0.5); HEMATOCRIT 34.4 % (42-52); HEMOGLOBIN 11.4 g/dL (14.0-18.0); IG# 0.03 K/uL (0.00-0.02); LYMPH % 34.3 %; LYMPH ABS # 2.88 K/uL (1.2-3.4); MEAN CELL VOLUME 89.6 fL (80-100); MEAN CORPUSCULAR HEMOGLOBIN 29.7 pg (25-34); MEAN CORPUSCULAR HGB CONC 33.1 g/dl (32-36); MEAN PLATELET VOLUME 10.6 fL (7.4-10.4); MONO % 8.3 %; NEUT % 52.2 %; NEUT ABS # 4.37 K/uL (1.4-6.5); PLATELET COUNT 184 K/uL (130-400); RED CELL DISTRIBUTION WIDTH CV 15.6 % (11.5-14.5); RED CELL DISTRIBUTION WIDTH SD 50.4 fL (36.4-46.3); WHITE BLOOD COUNT 8.39 K/uL (4.8-10.8)
[2017-05-28] MEDS ORDERED: FURO-85 PO (11:00)
[2017-05-28] MEDS ORDERED: POLY335019 PO (11:00)
[2017-05-28] MEDS ORDERED: NTRGSL/4 UT (11:00)
[2017-05-28] MEDS ORDERED: ACET-1138 PO (11:00)
[2017-05-28] MEDS ORDERED: FERR324T15 PO (11:00)
[2017-05-28] MEDS ORDERED: WARF1TAB6 PO (11:00)
[2017-05-28 11:04] LABS: INR 2.7 (0.9-1.1); PTT PATIENT 43.7 SECONDS (21.0-31.0)
[2017-05-28] MEDS: TRAMADOL HCL 50 MG TAB PO STA ×2 (11:22→11:24)
[2017-05-28 11:24] LABS: CREATININE 2.2 mg/dl (0.60-1.40)
[2017-05-28 11:25] LABS: ALBUMIN 4.1 gm/dl (3.4-5.0); CALCIUM 9.1 mg/dl (8.5-10.1); POTASSIUM 3.8 mmol/L (3.5-5.1)
[2017-05-28 11:27] LABS: TOTAL PROTEIN 7.7 gm/dl (6.4-8.2)
--- NOTE | 2017-05-28 12:48 | DIAGNOSTIC IMAGING REPORT ---
MRI OF THE LUMBAR SPINE WITHOUT CONTRAST CLINICAL HISTORY: Recent surgery. Left lower extremity radiculopathy. COMPARISON STUDY: MRI of the lumbar spine April 11, [address] February 27, 2017. TECHNIQUE: Utilizing a 1.5 Aida magnet and dedicated coil, multiplanar, multiecho imaging of the lumbar spine was performed without IV contrast. FINDINGS: For purposes of numbering on this exam, the L5-S1 disc space is assigned to axial image 23 of 25. There are postoperative findings consistent with a L3-S1 laminectomy, L4-L5 discectomy with interbody spacer placement and bilateral pedicle screw fusion from L3 through S1. There is mild marrow signal abnormality along the superior endplate of L5 with slight concavity of the superior plate of L5. Old T11 compression deformity is noted. There is no intracanalicular mass or fluid collection. The conus terminates at the L1-L2 level. Note is made of a 5.6 x 3.6 x 2.3 cm laminectomy bed fluid collection. L1-2: There is moderate disc space narrowing with disc bulge, ligamentous hypertrophy and facet arthrosis. There is mild narrowing of the central canal and lateral recesses with severe right and moderate left neural foraminal stenosis L2-3: There is marked disc space narrowing with disc bulge, ligamentous hypertrophy and facet arthrosis which has progressed since MRI of April 11, 2016. This results in moderate narrowing of the central canal, lateral recesses and neural foramen. L3-4: There is no residual central canal stenosis. The neural foramen are patent. L4-5: No residual central canal stenosis. There is mild bilateral neural foraminal stenosis. L5-S1: The central canal and neural foramen are patent. IMPRESSION: 1. Status post L3-S1 decompression, bilateral posterior fusion and L4-L5 discectomy. 5.6 x 3.6 x 2.3 cm laminectomy bed fluid collection which is nonspecific although likely reflects a seroma. A pseudomeningocele could appear similar although is considered less likely. Sterility cannot be assessed by MRI. 2. Moderate central canal and lateral recess and neural foraminal stenosis at L2-L3 due to disc bulge, ligamentous hypertrophy and facet arthrosis which has progressed since MRI of April 11, 2016. 3. Slight concavity of the superior endplate of L5 with minimal adjacent marrow signal abnormality which is likely related to spacer placement. Electronically signed by: Juan Luis Pinto M.D. 05/28/2017 12:47 PM Dictated Date/Time: 05/28/2017 12:34 PM
[2017-05-28] MEDS ORDERED: TRAM-10 PO (14:10)
[2017-05-28] MEDS ORDERED: TRAMADOL HCL 50 MG TAB ONE (15:02)
[2017-05-28 15:37] VITALS: BP 116/86; PULSE 60; TEMP 36.3; O2SAT 94
== END 2017-05-28 15:38 | disposition home or self-care (01) ==
LOC: C.EDB 09:48 → C.EDC 15:38
DX: M54.16 Radiculopathy, lumbar region (principal); M48.062 Spinal stenosis, lumbar region with neurogenic claudication; Z98.1 Arthrodesis status; I48.91 Unspecified atrial fibrillation; N40.0 Benign prostatic hyperplasia without lower urinary tract symptoms; I11.0 Hypertensive heart disease with heart failure; I50.9 Heart failure, unspecified; E11.9 Type 2 diabetes mellitus without complications; K21.9 Gastro-esophageal reflux disease without esophagitis; Z79.84 Long term (current) use of oral hypoglycemic drugs; Z79.01 Long term (current) use of anticoagulants; Z91.048 Other nonmedicinal substance allergy status; Z88.8 Allergy status to other drugs, medicaments and biological substances; Z83.3 Family history of diabetes mellitus; Z82.49 Family history of ischemic heart disease and other diseases of the circulatory system

== ENCOUNTER 2017-05-31 18:34 | Emergency (ER) | payer OTHER ==
[~2017-05-31] VITALS: Ht 165.1 cm; Wt 78.0 kg
[~2017-05-31 18:34] MED LIST changes: +ACET-1138 PO; -ACET-1311 PO; -ALLO300T2 PO; -FERR1TAB13 PO; +FERR324T15 PO; +FURO-85 PO; -LSX40 PO; -MOMLX PO; +NTRGSL/4 UT; +POLY335019 PO; -PSYL0.524 PO; -SODIENE PR; +TRAM-10 PO; +WARF1TAB6 PO; -WARF2.5T8 PO
[2017-05-31 18:56] VITALS: TEMP 36.6; Ht 165.1 cm; Wt 78.0 kg
[2017-05-31 19:26] VITALS: O2SAT 98
[2017-05-31 19:38] LABS: BASO % 0.1 %; BASO ABS # 0.01 K/uL (0-0.2); EOS % 3.4 %; EOS ABS # 0.29 K/uL (0-0.5); HEMATOCRIT 37.2 % (42-52); HEMOGLOBIN 12.3 g/dL (14.0-18.0); IG# 0.02 K/uL (0.00-0.02); LYMPH % 28.4 %; LYMPH ABS # 2.41 K/uL (1.2-3.4); MEAN CELL VOLUME 90.7 fL (80-100); MEAN CORPUSCULAR HGB CONC 33.1 g/dl (32-36); MEAN PLATELET VOLUME 11.4 fL (7.4-10.4); MONO % 12.6 %; MONO ABS # 1.07 K/uL (0.11-0.59); NEUT % 55.3 %; NEUT ABS # 4.68 K/uL (1.4-6.5); PLATELET COUNT 208 K/uL (130-400); RED CELL DISTRIBUTION WIDTH CV 15.6 % (11.5-14.5); RED CELL DISTRIBUTION WIDTH SD 51.7 fL (36.4-46.3); WHITE BLOOD COUNT 8.48 K/uL (4.8-10.8)
[2017-05-31 19:46] LABS: ALBUMIN 3.9 gm/dl (3.4-5.0); ALT/SGPT 26 U/L (12-78); AST/SGOT 28 U/L (15-37); BLOOD UREA NITROGEN 40 mg/dl (7-18); CALCIUM 9.3 mg/dl (8.5-10.1); CARBON DIOXIDE 27 mmol/L (21-32); CREATININE 2.26 mg/dl (0.60-1.40); GLUCOSE 183 mg/dl (70-99); LIPASE 155 U/L (73-393); POTASSIUM 3.8 mmol/L (3.5-5.1); SODIUM 139 mmol/L (136-145)
[2017-05-31 19:51] LABS: ALKALINE PHOSPHATASE 131 U/L (45-117); TOTAL PROTEIN 8.1 gm/dl (6.4-8.2)
--- NOTE | 2017-05-31 20:13 | DIAGNOSTIC IMAGING REPORT ---
CHEST ONE VIEW PORTABLE CLINICAL HISTORY: 82 years-old Male presenting with rue weak and lle . TECHNIQUE: Portable upright AP view of the chest was obtained. COMPARISON: 02/27/2017. FINDINGS: Median sternotomy wires and mediastinal surgical clips noted. Atherosclerosis of aortic arch. Cardiac silhouette mildly enlarged, unchanged. Prominence of pulmonary vasculature. Minimal hazy opacity in the left retrocardiac region. Trace left pleural effusion may be present. Right lung and pleural space clear. Reverse total left shoulder arthroplasty. IMPRESSION: 1. Cardiomegaly with findings suggestive of volume overload. No lisbeth pulmonary edema. 2. Possible left basilar atelectasis and trace left pleural effusion. Electronically signed by: Gallo Mendenhall M.D. 05/31/2017 8:12 PM Dictated Date/Time: 05/31/2017 8:10 PM
[2017-05-31] MEDS ORDERED: FRS/40 PO ×2 (20:40)
[2017-05-31] MEDS ORDERED: COLC0.6T54 PO (20:47)
[2017-05-31] MEDS ORDERED: ONGLYZA PO (20:47)
[2017-05-31] MEDS ORDERED: OXGN (20:47)
[2017-05-31] MEDS ORDERED: ALL300 PO (20:47)
--- NOTE | 2017-05-31 21:38 | DIAGNOSTIC IMAGING REPORT ---
HEAD WITHOUT CONTRAST (CT) CLINICAL HISTORY: 82 years-old Male presenting with rue weakness . TECHNIQUE: Multidetector CT imaging of the head was performed without the use of intravenous contrast. IV contrast: None. A dose lowering technique was used consistent with the principles of ALARA (as low as reasonably achievable). COMPARISON: 02/27/2017. CT DOSE (mGy.cm): The estimated cumulative dose is 537.48 mGy.cm. 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 Proportional ventricular and sulcal prominence, likely age-related parenchymal volume loss. Brain parenchyma normal in appearance with preserved alva-white differentiation. No mass effect or midline shift. No hemorrhage or acute territorial infarct. No extra-axial fluid collection. Paranasal sinuses and mastoid air cells clear. Calvarium intact. IMPRESSION: 1. No acute intracranial abnormality. Electronically signed by: Gallo Mendenhall M.D. 05/31/2017 9:37 PM Dictated Date/Time: 05/31/2017 9:35 PM
[2017-05-31] MEDS ORDERED: LORAZEPAM 0.5 MG TAB SL STA (23:06)
[2017-05-31] MEDS ORDERED: ONDANSETRON INJ 2 MG/ML 2 ML VIAL ONE (23:12)
[2017-06-01 01:19] VITALS: BP 145/81; PULSE 66; O2SAT 96
--- NOTE | 2017-06-01 01:29 | EMERGENCY ROOM VISIT NOTE ---
History Report prepared by Verito: Radha Shaw Under the Supervision of: Dr. Ousmane Doe D.O. First contact with patient: 19:10 Chief Complaint: WEAKNESS Stated Complaint: LEFT LEG WEAK, RT ARM WEAK History of Present Illness The patient is a 82 year old male who presents to the Emergency Room with complaints of constant right arm weakness beginning about a week ago. The patient states his left leg started to get numb about a week ago. Yesterday, the patient saw Dr. Doshi for back surgery he done in January 2017. After his appointment, the patient states he was using his walker and when he stepped on his left leg it "gave out" when he stepped over an object. Presently, the patient states his right arm and left leg are still weak. He reports his arm is mostly weak when he lifts it up. He denies any hand weakness or pain in his arm. The patient called his PCP who told him to come to the ED. Pt denies headache, change in vision, fevers, chest pain, shortness of breath, nausea, vomiting, diarrhea, pain with urination, and melena. He reports constant lower back pain since his surgery Source of History: patient Onset: a week ago Position: arm (right), leg (left) Quality: other (weakness) Timing: constant Associated Symptoms: + weakness, No chest pain, No SOB Review of Systems See HPI for pertinent positives & negatives. A total of 10 systems reviewed and were otherwise negative. Past Medical & Surgical Medical Problems: (1) Atrial Fibrillation (2) BPH (benign prostatic hyperplasia) (3) Congestive Heart Failure Nos (4) Diabetes (5) Esophageal Reflux (6) Hypertension (7) Hypertension Nos (8) Lumbar stenosis with neurogenic claudication (9) Pneumonia Surgical Problems: (1) H/O prostatectomy (2) History of rotator cuff surgery Family History Diabetes mellitus Heart disease Hypertension Social History Smoking Status: Never Smoker Drug Use: none Marital Status: Housing Status: lives with significant other Occupation Status: retired Current/Historical Medications Scheduled Allopurinol (Allopurinol), 300 MG PO DAILY Amlodipine Besylate (Amlodipine Besylate), 10 MG PO QAM Atorvastatin (Lipitor), 80 MG PO DAILY Ferrous Fumarate (Ferrous Fumarate 324), 324 MG PO BID Furosemide (Lasix), 80 MG PO QAM Furosemide (Lasix), 40 MG PO QPM Glimepiride (Glimepiride), 4 MG PO BID Home O2 Therapy (Oxygen), 3 LITERS NA HS Isosorbide Mononitrate (Imdur Ext Rel), 60 MG PO QAM Levothyroxine Sodium (Levothyroxine Sodium), 100 MCG PO QAM Losartan Potassium (Cozaar), 100 MG PO QPM Metoprolol Succinate (Metoprolol Succinate ER), 50 MG PO QAM Omeprazole (Prilosec), 20 MG PO QAM Warfarin Sod (Jantoven), 5 MG PO DAILY [Onglyza], 2.5 MG PO QAM Scheduled PRN Acetaminophen (Tylenol Extra Strength), 1,000 MG PO Q6 PRN for Pain Colchicine (Colchicine), 0.6 MG PO DAILY PRN for PRN Nitroglycerin (Nitrostat), 0.4 MG UT PRN PRN for Chest Pain Polyethylene Glycol 3350 (Miralax), 17 GM PO DAILY PRN for Constipation Tramadol (Ultram), 1-2 TABS PO Q6 PRN for Pain Allergies Coded Allergies: Morphine (Unverified Allergy, Unknown, CONFUSION, 05/31/17) Adhesives (Verified Adverse Reaction, Intermediate, TEARS SKIN WITH TAPE- ARMS, 05/28/17) Colestipol (Verified Adverse Reaction, Mild, Sleepiness, 05/28/17) Simvastatin (Verified Adverse Reaction, Mild, Sleepiness, 05/28/17) Physical Exam Vital Signs Date Time Temp Pulse Resp B/P (MAP) Pulse Ox O2 Delivery O2 Flow Rate FiO2 06/01/17 00:24 64 18 158/68 96 Room Air 05/31/17 22:45 62 18 125/78 98 Room Air 05/31/17 21:03 63 18 149/74 98 Room Air 05/31/17 19:26 98 Room Air 05/31/17 19:26 65 18 166/88 98 Room Air 05/31/17 19:17 62 05/31/17 18:56 36.6 64 18 162/81 93 Room Air Physical Exam GENERAL: Sitting up in bed, alert, chronically appearing, well nourished, no distress, non-toxic EYE EXAM: normal conjunctiva. PERRL and EOM's intact. OROPHARYNX: no exudate, no erythema, lips, buccal mucosa, and tongue normal and mucous membranes are moist NECK: supple, no nuchal rigidity, no adenopathy, non-tender LUNGS: Clear to auscultation. Normal chest wall mechanics HEART: no murmurs, S1 normal and S2 normal ABDOMEN: abdomen soft, non-tender, normo-active bowel sounds, no masses, no rebound or guarding. BACK: Back is symmetrical on inspection and there is no deformity, no midline tenderness, no CVA tenderness. SKIN: no rashes and no bruising UPPER EXTREMITIES: Flexion and extension of the shoulders, elbows, wrist and grasp were 5 out of 5 bilaterally. LOWER EXTREMITIES: Flexion extension of the hips, knees, ankles and EHL are 5 out of 5 bilaterally with gross sensation intact. He may be faintly weaker with flexion and his left hip but difficult to ascertain. Patellar and Achilles reflexes are 2 out of 4. NEURO EXAM: Normal sensorium, cranial nerves II-XII grossly intact, normal speech, no gross weakness of arms, no gross weakness of legs. Medical Decision & Procedures ER Provider Diagnostic Interpretation: Radiology results as stated below per my review and the radiologist's interpretation: CHEST ONE VIEW PORTABLE FINDINGS: Median sternotomy wires and mediastinal surgical clips noted. Atherosclerosis of aortic arch. Cardiac silhouette mildly enlarged, unchanged. Prominence of pulmonary vasculature. Minimal hazy opacity in the left retrocardiac region. Trace left pleural effusion may be present. Right lung and pleural space clear. Reverse total left shoulder arthroplasty. IMPRESSION: 1. Cardiomegaly with findings suggestive of volume overload. No lisbeth pulmonary edema. 2. Possible left basilar atelectasis and trace left pleural effusion. Electronically signed by: Gallo Mendenhall M.D. MRI HEAD: Compared to CT 02/27/2017. No ICH, mass effect or edema. No foci of acute ischemia. Chronic changed similar to prior. Radiologist: Darby Santamaria MD Laboratory Results 05/31/17 19:15 Red Blood Count 4.10, Mean Corpuscular Volume 90.7, Mean Corpuscular Hemoglobin 30.0, Mean Corpuscular Hemoglobin Concent 33.1, Mean Platelet Volume 11.4, Neutrophils (%) (Auto) 55.3, Lymphocytes (%) (Auto) 28.4, Monocytes (%) (Auto) 12.6, Eosinophils (%) (Auto) 3.4, Basophils (%) (Auto) 0.1, Neutrophils # (Auto ) 4.68, Lymphocytes # (Auto) 2.41, Monocytes # (Auto) 1.07, Eosinophils # (Auto ) 0.29, Basophils # (Auto) 0.01 05/31/17 19:15 Test 05/31/17 19:15 05/31/17 20:05 White Blood Count 8.48 K/uL (4.8-10.8) Red Blood Count 4.10 M/uL (4.7-6.1) Hemoglobin 12.3 g/dL (14.0-18.0) Hematocrit 37.2 % (42-52) Mean Corpuscular Volume 90.7 fL (80-100) Mean Corpuscular Hemoglobin 30.0 pg (25-34) Mean Corpuscular Hemoglobin Concent 33.1 g/dl (32-36) Platelet Count 208 K/uL (130-400) Mean Platelet Volume 11.4 fL (7.4-10.4) Neutrophils (%) (Auto) 55.3 % Lymphocytes (%) (Auto) 28.4 % Monocytes (%) (Auto) 12.6 % Eosinophils (%) (Auto) 3.4 % Basophils (%) (Auto) 0.1 % Neutrophils # (Auto) 4.68 K/uL (1.4-6.5) Lymphocytes # (Auto) 2.41 K/uL (1.2-3.4) Monocytes # (Auto) 1.07 K/uL (0.11-0.59) Eosinophils # (Auto) 0.29 K/uL (0-0.5) Basophils # (Auto) 0.01 K/uL (0-0.2) RDW Standard Deviation 51.7 fL (36.4-46.3) RDW Coefficient of Variation 15.6 % (11.5-14.5) Immature Granulocyte % (Auto) 0.2 % Immature Granulocyte # (Auto) 0.02 K/uL (0.00-0.02) Anion Gap 10.0 mmol/L (3-11) Est Creatinine Clear Calc Drug Dose 24.7 ml/min Estimated GFR () 30.4 Estimated GFR (Non- 26.2 BUN/Creatinine Ratio 17.8 (10-20) Calcium Level 9.3 mg/dl (8.5-10.1) Total Bilirubin 0.5 mg/dl (0.2-1) Direct Bilirubin 0.1 mg/dl (0-0.2) Aspartate Amino Transf (AST/SGOT) 28 U/L (15-37) Alanine Aminotransferase (ALT/SGPT) 26 U/L (12-78) Alkaline Phosphatase 131 U/L (45-117) Troponin I < 0.015 ng/ml (0-0.045) Total Protein 8.1 gm/dl (6.4-8.2) Albumin 3.9 gm/dl (3.4-5.0) Lipase 155 U/L (73-393) Urine Color YELLOW Urine Appearance CLEAR (CLEAR) Urine pH 5.5 (4.5-7.5) Urine Specific [place] 1.014 (1.000-1.030) Urine Protein 2+ (NEG) Urine Glucose (UA) NEG (NEG) Urine Ketones NEG (NEG) Urine Occult Blood NEG (NEG) Urine Nitrite NEG (NEG) Urine Bilirubin NEG (NEG) Urine Urobilinogen NEG (NEG) Urine Leukocyte Esterase NEG (NEG) Urine WBC (Auto) 5-10 /hpf (0-5) Urine RBC (Auto) 0-4 /hpf (0-4) Urine Hyaline Casts (Auto) 0 /lpf (0-5) Urine Epithelial Cells (Auto) >30 /lpf (0-5) Urine Bacteria (Auto) NEG (NEG) Urine Pathogenic Casts /lpf (0) Laboratory results per my review. Medications Administered Medications (Trade) Dose Ordered Sig/Andrea Route Start Time Stop Time Status Last Admin Dose Admin Lorazepam (Ativan Tab) 0.5 mg NOW STAT SL 05/31/17 23:06 05/31/17 23:07 DC 05/31/17 23:24 0.5 MG Ondansetron HCl (Zofran Inj) 4 mg STK-MED ONCE .ROUTE 05/31/17 23:12 05/31/17 23:13 DC 05/31/17 23:24 4 MG ECG Per My Interpretation Indication: weakness Rate (beats per minute): 67 Rhythm: sinus rhythm Findings: PVC, left axis deviation ED Course ED COURSE: Vital signs were reviewed and showed normal The patients medical record was reviewed The above diagnostic studies were performed and reviewed. ED treatments and interventions as stated above. 1916: The patient was evaluated in room A9. A complete history and physical examination was performed. 9: I updated the patient on his test results. Will page neurology. 2215: I reviewed the patient's case with Dr. Higgins-Neurology. He recommended getting an brain MRI on the patient. 2253: I updated the patient on his test results. He is agreeable to the MRI. 2306: Ordered Lorazepam 0.5 mg SL. 2312: Ordered Zofran Inj 4 mg .ROUTE. 0108: I updated the patient on his MRI results. 0117: Upon reevaluation, the patient is resting comfortably.I discussed my findings with the patient and he understands and agrees with the treatment plan. Based on the patients age, coexisting illnesses, exam and lab findings the decision to treat as an outpatient was made. The patient remained stable while under my care. The patient appeared well at the time of discharge. Medical Decision Differential Diagnosis includes but is not limited to dehydration, stroke, anemia, hypoglycemia, hyponatremia, hypernatremia, urinary tract infection, pneumonia, bronchitis, sepsis, gastroenteritis, additional abdominal pathology, metabolic abnormalities and infections. Patient is an 82-year-old male who presents to ER referred in by PCP for possible stroke as he was complaining of right upper extremity weakness and left lower extremity weakness/pain in left thigh which is been there for the past several days. Patient saw Dr. Doshi yesterday for the left lower extremity. He has an MRI which was performed several days ago of the lumbar spine. On exam he is otherwise completely neurologically intact. There is no signs of cauda equina or stroke. He has absolutely no weakness in the right upper extremity. Discussed with neurology. They recommended an MRI of the brain as I had already performed a CT of the head which was negative. CBC was unremarkable. BMP with a creatinine of 2.2 which is baseline. Bilirubin all LFTs and lipase is unremarkable. Troponin was normal. EKG was unremarkable he had no chest pain or shortness breath. Patient family were updated bedside. He was very antsy and was requesting to be discharged on multiple occasions. I did feel this is reasonable as there is no signs of any acute stroke and I feel as though the left leg pain is radicular in nature. Discussed with Pt concerning signs and symptoms to watch out for. Pt was instructed to follow up with their PCP and discussed with the patient their option to return to the ED at anytime for persistent or worsening symptoms. The appropriate anticipatory guidance and out-patient management, including indications for return to the emergency department, were explained at length to the patient and understood. Medication Reconcilliation Current Medication List: was personally reviewed by me Blood Pressure Screening Patient's blood pressure: Elevated blood pressure Blood pressure disposition: Elevated BP felt to be situational Consults Time Called: 2209 Consulting Physician: Dr. Centeno Returned Call: [id number] I reviewed the patient's case with Dr. Centeno. He recommended getting an MRI on the patient. Impression Primary Impression: Lumbar radiculopathy Additional Impression: Back pain Scribe Attestation The scribe's documentation has been prepared under my direction and personally reviewed by me in its entirety. I confirm that the note above accurately reflects all work, treatment, procedures, and medical decision making performed by me. Departure Information Dispostion Home / Self-Care Referrals Vj Malone M.D. (PCP) Forms HOME CARE DOCUMENTATION FORM, IMPORTANT VISIT INFORMATION Patient Instructions Back Pain - [facility], [facility] Additional Instructions Please follow up with your primary care doctor with in the next 24 hours. Any worsening of your symptoms, please return to the ED immediately. This includes any fevers greater than 100.4, worsening pain, weakness or numbness in any extremity, slurred speech, numbness in her groin, unable to urinate, unable to walk, unable to move her bowels, chest pain, shortness breath, persistent nausea , vomiting, unable to eat or drink, or any other concerning signs or symptoms from your standpoint. You were found to have a blood pressure greater than 120 systolic over 90 diastolic. Due to the new Medicare guidelines, we are now recommending that you follow up with your primary care doctor in regards to this elevated blood pressure. Problem Qualifiers Additional Impression: Back pain Back pain location: low back pain Chronicity: acute Back pain laterality: left Sciatica presence: with sciatica Sciatica laterality: sciatica of left side Qualified Codes: M54.42 - Lumbago with sciatica, left side
--- NOTE | 2017-06-01 07:23 | DIAGNOSTIC IMAGING REPORT ---
BRAIN WITHOUT CONTRAST HISTORY: Mental status change ? cva rue weakness TECHNIQUE: Multiplanar multisequence MRI of the brain was performed without the use of contrast. COMPARISON STUDY: None. FINDINGS: There are no areas of restricted diffusion to suggest acute infarction. The midline structures are intact. The paranasal sinuses are clear. The mastoid air cells are clear. The ventricles and sulci are within normal limits for age. There is no mass, hematoma, midline shift. The major vascular flow-voids at the skull base are well maintained. Evidence for age-related atrophy and chronic small vessel change. IMPRESSION: No acute intracranial abnormality. Moderate atrophy and chronic small vessel change considered age-related. The above report was generated using voice recognition software. It may contain grammatical, syntax or spelling errors. Electronically signed by: Da Ashby M.D. 06/01/2017 7:22 AM Dictated Date/Time: 06/01/2017 7:20 AM
== END 2017-06-01 01:20 | disposition home or self-care (01) ==
LOC: C.EDB 18:35 → C.EDA 06-01 01:20
DX: M54.42 Lumbago with sciatica, left side (principal); R20.0 Anesthesia of skin; E11.9 Type 2 diabetes mellitus without complications; I50.9 Heart failure, unspecified; I11.0 Hypertensive heart disease with heart failure; I48.91 Unspecified atrial fibrillation; K21.9 Gastro-esophageal reflux disease without esophagitis; Z79.84 Long term (current) use of oral hypoglycemic drugs; Z99.81 Dependence on supplemental oxygen; Z79.01 Long term (current) use of anticoagulants; Z98.890 Other specified postprocedural states; Z88.6 Allergy status to analgesic agent; Z88.8 Allergy status to other drugs, medicaments and biological substances; Z91.048 Other nonmedicinal substance allergy status; Z83.3 Family history of diabetes mellitus; Z82.49 Family history of ischemic heart disease and other diseases of the circulatory system

== ENCOUNTER → 2017-06-01 | Outpatient (CLI) | payer OTHER ==
[~2017-06-01] MED LIST changes: +ALL300 PO; -CLC6 PO; +COLC0.6T54 PO; +FRS/40 PO; -FURO-85 PO; -GABA-113 PO; +ONGLYZA PO; +OXGN; -SITA50TA3 PO; -WARF1TAB6 PO
[2017-06-01 13:01] LABS: URIC ACID 4.7 mg/dl (2.6-7.2)
[2017-06-01 13:06] LABS: HEMOGLOBIN A1C 7.2 % (4.5-5.6)
== END | disposition home or self-care (01) ==
LOC: C.LABMFLN 10:37
PROVIDERS: ATTEND Family Medicine
DX: M10.9 Gout, unspecified (principal); I48.91 Unspecified atrial fibrillation; E78.00 Pure hypercholesterolemia, unspecified; E03.9 Hypothyroidism, unspecified; E11.43 Type 2 diabetes mellitus with diabetic autonomic (poly)neuropathy; R29.898 Other symptoms and signs involving the musculoskeletal system

== ENCOUNTER → 2017-06-11 | Outpatient (CLI) | payer OTHER ==
[2017-06-11 17:55] LABS: BASO % 0.2 %; BASO ABS # 0.02 K/uL (0-0.2); EOS % 5.3 %; EOS ABS # 0.52 K/uL (0-0.5); HEMATOCRIT 34.5 % (42-52); HEMOGLOBIN 11.4 g/dL (14.0-18.0); IG# 0.13 K/uL (0.00-0.02); LYMPH % 31.8 %; LYMPH ABS # 3.14 K/uL (1.2-3.4); MEAN CELL VOLUME 90.8 fL (80-100); MEAN PLATELET VOLUME 12.1 fL (7.4-10.4); MONO % 11.7 %; MONO ABS # 1.15 K/uL (0.11-0.59); NEUT % 49.7 %; PLATELET COUNT 210 K/uL (130-400); RED CELL DISTRIBUTION WIDTH CV 15.9 % (11.5-14.5); RED CELL DISTRIBUTION WIDTH SD 52.8 fL (36.4-46.3); WHITE BLOOD COUNT 9.86 K/uL (4.8-10.8)
[2017-06-11 18:18] LABS: ALBUMIN 3.4 gm/dl (3.4-5.0); ALT/SGPT 29 U/L (12-78); BLOOD UREA NITROGEN 39 mg/dl (7-18); CALCIUM 8.6 mg/dl (8.5-10.1); CARBON DIOXIDE 30 mmol/L (21-32); CREATININE 2.22 mg/dl (0.60-1.40); GLUCOSE 307 mg/dl (70-99); POTASSIUM 3.8 mmol/L (3.5-5.1); SODIUM 135 mmol/L (136-145)
[2017-06-11 18:22] LABS: ALKALINE PHOSPHATASE 144 U/L (45-117); AST/SGOT 23 U/L (15-37)
== END | disposition home or self-care (01) ==
LOC: C.LABMFLN 15:25
PROVIDERS: ATTEND Family Medicine
DX: R58 Hemorrhage, not elsewhere classified (principal); R41.0 Disorientation, unspecified

== ENCOUNTER → 2017-11-23 | Outpatient (CLI) | payer OTHER ==
[~2017-11-23] MED LIST changes: +CHOL1000 PO; +CPR/500 PO; +GABA-1219 PO; -ISOS60TA2 PO; +ISOS60TA25 PO; +OMEP20CA9 PO; -ONGLYZA PO; -PRLSR20 PO; +SITA50TA PO; -TRAM-10 PO; +ULT50 PO; -WARF5TAB7 PO
== END | disposition home or self-care (01) ==
LOC: C.LABMFLN 15:41
PROVIDERS: ATTEND Family Medicine
DX: M25.579 Pain in unspecified ankle and joints of unspecified foot (principal)

== ENCOUNTER 2019-09-17 17:24 | Observation (INO) ==
--- NOTE | 2019-09-17 17:52 | Emergency Department Note ---
Impression & Plan Precordial chest pain, RUBIO (acute kidney injury), Coronary arteriosclerosis ED Provider Note NAME: AYDEN BINGHAM AGE: 84 SEX: M : 1935 ARRIVES VIA: Walk-In INFORMANT: [Patient] ED PROVIDER(S): [Vj Slade MD] CHIEF COMPLAINT: Chest pain HISTORY OF PRESENT ILLNESS: Patient is an 84-year-old male who presents to the ER with complaints of a 30- minute bout of left-sided chest discomfort without radiation. The episode started about 3-1/2 hours ago. The pain was sort of like an ache or tightness, the pain lasted for about 30 minutes in total. It came on at rest. The pain was a 3 or 4 out of 10. There was no sweating, no shortness of breath, no nausea. The pain self resolved. 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 He has had 3 cardiac bypasses and 2 coronary stents. Over the last week, the patient has not had any exertional chest pain or dyspnea. He does not have angina. The patient states that he was never diag nosed with an MT. He does have a history of A. fib and congestive heart failure. REVIEW OF SYSTEMS: See HPI for pertinent positives and negatives. A total of ten systems were reviewed and were otherwise negative. PMHx/PSHx: See Below SOCIAL HISTORY: See Below. PHYSICAL EXAM: GENERAL: Patient is in no acute distress. HEENT: No acute trauma, normocephalic atraumatic, mucous membranes moist, no nasal congestion, no scleral icterus. NECK: No stridor, no adenopathy, no meningismus, trachea is midline. LUNGS: Clear to auscultation bilaterally, no wheeze, no rhonchi, breath sounds equal. HEART: 2/6 systolic murmur, irregular rhythm, normal rate. ABDOMEN: Soft, nontender, bowel sounds positive, no hernias, no peritonitis. EXTREMITIES: No cyanosis, mild bilateral pedal edema, full range of motion of all the joints without pain or difficulty, no signs for acute trauma. NEUROLOGIC: Oriented x 3, no acute motor or sensory deficits, no focal weakness. SKIN: No rash, no jaundice, no diaphoresis. DIFFERENTIAL DIAGNOSIS: Cardiac ischemia, aortic dissection, pulmonary embolism, pneumothorax, pneumonia, pericarditis, myocarditis, esophageal rupture, GERD, cholecystitis, pancreatitis, musculoskeletal, as well as other pathologies. EMERGENCY DEPARTMENT COURSE/PROCEDURES: ECG: Indication was chest pain. The EKG shows what appears to be a sinus rhythm with very frequent PVCs. The rate is 73. There is no ST elevation, there is some baseline artifact. The QTc is 500. Compared to an ECG from 09 September 2017, the PVCs are new. Continuous Cardiac Monitoring: An order was placed for continuous cardiac monitoring. The monitor shows a rate of 83 with sinus rhythm with frequent PVCs. MEDICAL DECISION MAKING: There is no leukocytosis. The patient is anemic but he does carry history of anemia. There is a normal platelet count. No coagulopathy. Creatinine is high at 3.13, this is a increase for the patient, there is thus some acute kidney injury present. Alk phos mildly elevated, the remaining liver enzymes were unremarkable. The lipase was unremarkable. Chest film showed some congestion but looks similar to previous films. He does carry a history of CHF. There was no pneumonia or pneumothorax. EKG showed a sinus rhythm with frequent PVCs. Cardiac enzyme testing x1 is not consistent with acute cardiac injury. The patient has been chest pain-free since arrival. He has not required anything for pain. I did speak with cardiology, a hospital stay was recommended. Given his discomfort, given his cardiac history, he requires further cardiac work-up and monitoring. I did speak with the patient, I talked with case management. The on-call hospitalist was consulted. 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 Vitamin D deficiency (Chronic) Surgical History History of arthroscopy of knee History of decompression of median nerve History of nasal septoplasty History of shoulder surgery History of tonsillectomy and adenoidectomy History of total shoulder replacement Hx of CABG Status post coronary artery stent placement Status post lumbar spine surgery for decompression of spinal cord Family History Mother Hypertension Cardiac disorder Acute myocardial infarction Daughter Breast cancer Brother Diabetes Hypertension Myocardial infarction Cardiac disorder Bipolar disorder Social History Preferred Language: Faroese Communication Ability: Effective Hearing Ability: Use of Hearing Aid Credit Assistant Required: No Beliefs That Will Affect Care: None marital status: Current Living Situation: Spouse Other Information That Helps Us Care for You: No Feels Safe at Home: Yes Safety Concerns: Feels Safe At This Time Smoking Status: Never smoker Second Hand Exposure: No ; Hx Alcohol Use: No Hx Substance Use: No Childhood Exposure to Second-Hand Smoke: No Seatbelt Use: always Sunscreen Use: No Allergies Allergies Allergy/AdvReac Type Severity Reaction Status Date / Time adhesive AdvReac Intermediate TEARS SKIN Verified 09/17/19 19:15 WITH TAPE-ARMS colestipol AdvReac Mild Sleepiness Verified 09/17/19 19:15 simvastatin AdvReac Mild Sleepiness Verified 09/17/19 19:15 morphine AdvReac Unknown CONFUSION Verified 09/17/19 19:15 Home Meds Home Medications Medication Instructions Recorded Confirmed levothyroxine 100 mcg tablet 100 mcg PO DAILY 01/29/19 09/17/19 torsemide 20 mg tablet 80 mg PO DAILY tab 01/29/19 09/17/19 acetaminophen [Tylenol Extra 500 mg PO Q6H PRN 09/17/19 09/17/19 Strength] Previous Rx's Medication Instructions Recorded amlodipine 10 mg tablet 10 mg PO DAILY #90 tab 10/16/18 aspirin 81 mg tablet,delayed 81 mg PO DAILY #90 tab 10/16/18 release atorvastatin 80 mg tablet 80 mg PO DAILY #90 tab 10/16/18 blood sugar diagnostic #100 ea 10/16/18 cholecalciferol (vitamin D3) 25 1,000 units PO DAILY #30 cap 10/16/18 mcg (1,000 unit) capsule ferrous sulfate 325 mg (65 mg 325 mg PO BID #180 tab 10/16/18 iron) tablet isosorbide mononitrate 120 mg 120 mg PO DAILY #90 tab 10/16/18 tablet,extended release 24 hr pen needle, diabetic 30 gauge x #100 ea 10/16/1808/15" losartan 50 mg tablet 50 mg PO DAILY #90 tab 12/20/18 allopurinol 300 mg tablet 300 mg PO DAILY #90 tab 01/09/19 gabapentin 300 mg capsule 300 mg PO HS #90 cap 04/21/19 colchicine 0.6 mg capsule 0.6 mg PO DAILY #30 cap 05/02/19 glimepiride 4 mg tablet See Rx Instructions PO BID #0 tab 05/22/19 calcitriol 0.5 mcg capsule 0.5 mcg PO UD #45 cap 08/19/19 omeprazole 20 mg capsule,delayed 20 mg PO DAILY PRN #90 cap 09/15/19 release Results & Data (ED) Vital Signs Vital Signs - 24 hr 09/17/19 17:27 09/17/19 17:54 09/17/19 17:59 Temperature 37 C Temperature Source Oral Pulse Rate 78 61 Pulse Rate from SpO2 Sensor Respiratory Rate 18 24 Blood Pressure 179/89 H 167/104 H Blood Pressure Mean 119 128 Pulse Oximetry 100 Oxygen Delivery Method Room Air Room Air Sepsis Recent Fever Within 48 Hours No Sepsis New/Unexplained Change in Mental Status No Sepsis Action Taken by Nursing No Action Required Oxygen Flow Rate - Titration Pulse Oximetry Post Tiitration 09/17/19 18:00 09/17/19 18:01 09/17/19 18:31 Temperature Temperature Source Pulse Rate 63 62 Pulse Rate from SpO2 Sensor 62 Respiratory Rate 18 20 Blood Pressure 167/99 H 156/98 H Blood Pressure Mean 133 128 Pulse Oximetry 91 Oxygen Delivery Method Room Air Sepsis Recent Fever Within 48 Hours Sepsis New/Unexplained Change in Mental Status Sepsis Action Taken by Nursing Oxygen Flow Rate - Titration Pulse Oximetry Post Tiitration 09/17/19 18:32 09/17/19 19:00 09/17/19 19:03 Temperature Temperature Source Pulse Rate 62 58 L Pulse Rate from SpO2 Sensor 59 L 60 Respiratory Rate 17 17 Blood Pressure 160/76 H Blood Pressure Mean 94 Pulse Oximetry 95 91 87 L Oxygen Delivery Method Room Air Sepsis Recent Fever Within 48 Hours Sepsis New/Unexplained Change in Mental Status Sepsis Action Taken by Nursing Oxygen Flow Rate - Titration 2 Pulse Oximetry Post Tiitration 94 09/17/19 19:30 09/17/19 20:00 09/17/19 20:01 Temperature Temperature Source Pulse Rate 57 L 57 L 60 Pulse Rate from SpO2 Sensor 57 L 56 L 59 L Respiratory Rate 17 18 20 Blood Pressure 157/76 H 155/81 H Blood Pressure Mean 108 113 Pulse Oximetry 94 99 98 Oxygen Delivery Method Sepsis Recent Fever Within 48 Hours Sepsis New/Unexplained Change in Mental Status Sepsis Action Taken by Nursing Oxygen Flow Rate - Titration Pulse Oximetry Post Tiitration 09/17/19 20:30 09/17/19 20:31 09/17/19 21:00 Temperature Temperature Source Pulse Rate 57 L 59 L 57 L Pulse Rate from SpO2 Sensor 56 L 55 L Respiratory Rate 24 18 16 Blood Pressure 170/96 H 163/95 H Blood Pressure Mean 127 130 Pulse Oximetry 99 95 Oxygen Delivery Method Sepsis Recent Fever Within 48 Hours Sepsis New/Unexplained Change in Mental Status Sepsis Action Taken by Nursing Oxygen Flow Rate - Titration Pulse Oximetry Post Tiitration Home Medications Current Medication List: was personally reviewed by me Laboratory Data Attestation: I reviewed the patient's lab results. Result diagrams: 09/17/19 17:55 09/17/19 17:55 Lab Results 09/17/19 09/17/19 09/17/19 Range/Units 17:55 17:55 17:55 WBC 7.60 (4.8-10.8) K/uL RBC 3.26 L (4.7-6.1) M/uL Hgb 10.1 L (14.0-18.0) g/dL Hct 31.5 L (42-52) % MCV 96.6 (80-100) fL MCH 31.0 (25-34) pg MCHC 32.1 (32-36) g/dL RDW Std Deviation 53.7 H (36.4-46.3) fL RDW Coeff of Radha 15.3 H (11.5-14.5) % Plt Count 176 (130-400) K/uL MPV 10.8 H (7.4-10.4) fL Immature Gran % (Auto) 0.1 % Neut % (Auto) 54.7 % Lymph % (Auto) 29.7 % Toole % (Auto) 9.2 % Eos % (Auto) 6.2 % Baso % (Auto) 0.1 % Immature Gran # (Auto) 0.01 (0.00-0.02) K/uL Neut # (Auto) 4.15 (1.4-6.5) K/uL Lymph # (Auto) 2.26 (1.2-3.4) K/uL Toole # (Auto) 0.70 H (0.11-0.59) K/uL Eos # (Auto) 0.47 (0-0.5) K/uL Baso # (Auto) 0.01 (0-0.2) K/uL PT 11.5 (9.0-12.0) Seconds INR 1.1 (0.9-1.1) APTT 28.6 (21.0-31.0) Seconds PTT Ratio 1.0 Sodium 144 (136-145) mmol/L Potassium 3.7 (3.5-5.1) mmol/L Chloride 109 H (98-107) mmol/L Carbon Dioxide 26 (21-32) mmol/L Anion Gap 9.0 (3-11) BUN 39 H (7-18) mg/dl Creatinine 3.13 H (0.6-1.4) mg/dl Est Cr Clr Drug Dosing 17.8 ml/min Est GFR ( Amer) 20.2 Est GFR (Non-Af Amer) 17.4 BUN/Creatinine Ratio 12.5 (10-20) Glucose 144 H (70-99) mg/dl Calcium 8.6 (8.5-10.1) mg/dl Magnesium 2.0 (1.8-2.4) mg/dl Total Bilirubin 0.4 (0.2-1) mg/dl AST 31 (15-37) U/L ALT 29 (12-78) U/L Alkaline Phosphatase 150 H (45-117) U/L Troponin I < 0.015 (0-0.045) ng/ml Total Protein 6.8 (6.4-8.2) gm/dl Albumin 3.4 (3.4-5.0) gm/dl Globulin 3.4 (2.5-4.0) gm/dl Albumin/Globulin Ratio 1.0 (0.9-2) Lipase 68 L (73-393) U/L Administered Medications Ferrous Sulfate (Feosol) 325 mg PO BID SHIMA Stop: 10/17/19 22:47 Last Admin: 09/18/19 00:33 Dose: 325 mg Documented by: [id number] Gabapentin (Neurontin) 300 mg PO HS SHIMA Stop: 10/17/19 22:47 Last Admin: 09/18/19 00:33 Dose: 300 mg Documented by: [id number] Nitroglycerin (Nitro-Bid 2%) 1 inch EXT Q6 SHIMA Stop: 10/18/19 00:00 Last Admin: 09/18/19 00:31 Dose: 1 inch Documented by: [id number] Discontinued Medications Aspirin (Ecotrin Ectab) 243 mg PO NOW STA Stop: 09/17/19 21:18 Last Admin: 09/17/19 21:28 Dose: 243 mg Documented by: [id number] Imaging Data Radiologist's Impression: XR chest 1V portable HISTORY: 84 years-old Male Chest Pain acute atypical chest pain COMPARISON: Chest radiograph 05/31/2017 TECHNIQUE: Portable AP view of the chest FINDINGS: Cardiac silhouette is enlarged. Prior median sternotomy and CABG. Pulmonary vascular congestion with mild interstitial coarsening. Patient is mildly rotated. No pneumothorax. Mild bibasilar atelectasis. Degenerative changes of the spine and right shoulder. Reverse left shoulder total joint arthroplasty. IMPRESSION: Cardiomegaly with mild pulmonary vascular congestion. Blood Pressure Blood Pressure Findings: Elevated blood pressure Blood Pressure Disposition: further management by hospitalist Discharge Plan Visit Data *Final* Discharge Date/Time: 09/17/19 22:54 Chief Complaint: Chest Pain Stated Complaint: CHEST PAIN EARLIER TODAY - DOC [facility] ED Provider: Vj Slade Discharge Problem: Precordial chest pain, RUBIO (acute kidney injury), Coronary arteriosclerosis Patient Disposition: Admitted As Inpatient Condition: Good
[2019-09-17 18:04] LABS: Basophils # (auto) 0.01 K/uL (0-0.2); Basophils % (auto) 0.1 %; Eosinophils # (auto) 0.47 K/uL (0-0.5); Eosinophils % (auto) 6.2 %; Hematocrit (blood only) 31.5 % (42-52); Hemoglobin 10.1 g/dL (14.0-18.0); Immature Granulocytes # (auto) 0.01 K/uL (0.00-0.02); Immature Granulocytes % (auto) 0.1 %; Lymphocytes # (auto) 2.26 K/uL (1.2-3.4); Lymphocytes % (auto) 29.7 %; Mean Corpuscular Hgb Conc 32.1 g/dL (32-36); Mean Corpuscular Volume 96.6 fL (80-100); Mean Platelet Volume 10.8 fL (7.4-10.4); Monocytes % (auto) 9.2 %; Neutrophils # (auto) 4.15 K/uL (1.4-6.5); Neutrophils % (auto) 54.7 %; Platelet Count 176 K/uL (130-400); RDW Coefficient of Variation 15.3 % (11.5-14.5); RDW Standard Deviation 53.7 fL (36.4-46.3); Red Blood Count 3.26 M/uL (4.7-6.1)
[2019-09-17 18:15] LABS: INR 1.1 (0.9-1.1); Partial Thromboplastin Time 28.6 Seconds (21.0-31.0); Prothrombin Time 11.5 Seconds (9.0-12.0)
[2019-09-17 18:21] LABS: Alanine Aminotransferase 29 U/L (12-78); Albumin Level 3.4 gm/dl (3.4-5.0); Aspartate Aminotransferase 31 U/L (15-37); BUN Creatinine Ratio 12.5 (10-20); Blood Urea Nitrogen 39 mg/dl (7-18); Calcium 8.6 mg/dl (8.5-10.1); Carbon Dioxide 26 mmol/L (21-32); Chloride 109 mmol/L (98-107); Creatinine Clr Calc Pharmacy 17.8 ml/min; Est GFR (African American) 20.2; Est GFR (Non-African American) 17.4; Glucose 144 mg/dl (70-99); Lipase 68 U/L (73-393); Potassium 3.7 mmol/L (3.5-5.1); Sodium 144 mmol/L (136-145)
[2019-09-17 18:26] LABS: Alkaline Phosphatase 150 U/L (45-117); Bilirubin,Total 0.4 mg/dl (0.2-1); Globulin 3.4 gm/dl (2.5-4.0); Total Protein 6.8 gm/dl (6.4-8.2); Troponin I < 0.015 ng/ml (0-0.045)
--- NOTE | 2019-09-17 18:39 | XRay Report ---
XR chest 1V portable HISTORY: 84 years-old Male Chest Pain acute atypical chest pain COMPARISON: Chest radiograph 05/31/2017 TECHNIQUE: Portable AP view of the chest FINDINGS: Cardiac silhouette is enlarged. Prior median sternotomy and CABG. Pulmonary vascular congestion with mild interstitial coarsening. Patient is mildly rotated. No pneumothorax. Mild bibasilar atelectasis. Degenerative changes of the spine and right shoulder. Reverse left shoulder total joint arthroplasty . IMPRESSION: Cardiomegaly with mild pulmonary vascular congestion. ACT 112: Negative or not required by law. The above report was generated using voice recognition software. It may contain grammatical, syntax o r spelling errors. Electronically signed by: Mohit Pearce M.D. 09/17/2019 6:37 PM
[2019-09-17] MEDS ORDERED: ASPIRIN 81 MG ECTAB PO STA (21:17)
--- NOTE | 2019-09-17 21:21 | History & Physical Report ---
Date of Service September 17, 2019 Assessment & Plan (1) Dysarthria: 84 yo M PMHx DM2, CKD stage III with baseline Cr 2.2, hypothyroidism, HLD, CHF, HTN, paroxysmal AFib admitted with chest pain, RUBIO, and dysarthria, for stroke and cardiac work-up. Unstable angina: - Patient without symptoms at this time, history of present illness is consistent with unstable angina. - Hold Imdur, start Nitropaste. Total of asa 324 given in ED. - EKG without changes suggestive of [facility], initial troponin negative. - Continue to trend troponins, monitor for symptoms, telemetry for cardiac monitoring, TTE a.m. - Consider [facility] consult if symptoms return, worsen, or findings on echo suggestive of worsening CAD. Dysarthria: - For several hours overnight, gone upon waking this morning. Arrived to hospital asymptomatic and >4.5 hours after waking; not a candidate for tPA. - Given extensive cardiac disease, Hx HLD, and symptoms overnight have ordered CT w/o contrast and bilateral carotid dopplers for CVA work-up. - Differentials include CVA, TIA, atypical migraine. - Lipid panel and Hgb A1c performed in July, Hgb A1c 6.9%; total cholesterol 129 LDL 58 HDL 50. - Continue home atorvastatin 80 mg daily. Insulin sliding scale while admitted. RUBIO on CKD stage III: - Patient's baseline creatinine 2.2. - On admission creatinine is 3.13, patient appears fluid overloaded, RUBIO is likely due to poor perfusion from fluid overload. - Lasix 40 mg IV once, Lasix 40 mg p.o. twice daily starting tomorrow morning. - BMP AM. DM2: - Most recent hemoglobin A1c 6.9% in July. - Hold home medications, start SSI. Unspecified CHF: - Pt with CXR and physical exam findings suggestive of mild to moderate fluid overload. - Cardiology notes on record mention CHF with most recent Echo in 2018 showing pulmonary HTN. Unable to find Echo report for ejection fraction. - Patient takes torsemide 80mg daily at home. Here will start Lasix 40mg PO BID, pt receiving 40mg IV Lasix now and will monitor closely for changes in fluid status. - Given RUBIO will diurese with caution and continue to follow BMP, strict Is/Os. - Echo tomorrow AM. Hypothyroidism: - Continue home levothyroxine mcg daily. HTN: - Continue losartan, hold amlodipine in the setting of fluid overload. Code Status: FULL CODE FEN/GI: NPO at midnight DVT ppx: Dispo: telemetry for cardiac workup and monitoring, CVA r/o (2) Chest pain: (3) Type 2 diabetes mellitus with renal complication: (4) Acute kidney injury superimposed on CKD: (5) Benign essential hypertension: (6) Hypothyroidism: (7) Hyperlipidemia: (8) Congestive heart failure, unspecified: (9) Esophageal reflux: History of Present Illness Chief Complaint: chest pain, dysarthria Primary Care Provider: Vj Malone MD 84 yo M PMHx DM2, CKD stage III with baseline Cr 2.2, hypothyroidism, HLD, CHF, HTN presented to the ED for one episode of chest pain described as midsternal chest pressure and discomfort that lasted for 30 minutes starting at 3:30 PM today. This occurred while he was watching TV and sitting down, without any associated shortness of breath, diaphoresis, nausea, vomiting, dizziness, no radiation to the jaw or arm. This was not associated with food or with change in position. Came to the ED via personal vehicle. Patient does not have a history of chest pain in the past, but has had a bypass in the past as well as several stents. Follows with Dr. Collado with cardiology. In the ED was chest pain-free, EKG showed numerous PVCs but no ST or T wave changes, initial troponin was negative, chest x-ray showed cardiomegaly and mild pulmonary vascular congestion. Creatinine was found to be 3.13. Hospitalist service was consulted for admission. On my interview patient reports that he is still chest pain-free, and has no other symptoms. During discussion he stated that last night after supper he had some "difficulty getting the words to come out even though I knew what I wanted to say". This was not associated with any weakness of his arms or legs bilaterally, no difficulty swallowing, no difficulty with balance, no visual changes, no headache or dizziness, no other symptoms. Went to sleep shortly thereafter and woke up without symptoms. No prior history of CVA, TIA, migraine. Patient's family history is significant for hypertension and PA, but no CVA. At time of my interview patient does not report any further difficulty with speech. Allergies Allergy/AdvReac Type Severity Reaction Status Date / Time adhesive AdvReac Intermediate TEARS SKIN Verified 09/17/19 19:15 WITH TAPE-ARMS colestipol AdvReac Mild Sleepiness Verified 09/17/19 19:15 simvastatin AdvReac Mild Sleepiness Verified 09/17/19 19:15 morphine AdvReac Unknown CONFUSION Verified 09/17/19 19:15 Home Medications Home Medications Medication Instructions Recorded Confirmed Type amlodipine 10 mg tablet 10 mg PO DAILY #90 tab 10/16/18 09/17/19 Rx aspirin 81 mg tablet,delayed 81 mg PO DAILY #90 tab 10/16/18 09/17/19 Rx release atorvastatin 80 mg tablet 80 mg PO DAILY #90 tab 10/16/18 09/17/19 Rx blood sugar diagnostic #100 ea 10/16/18 09/17/19 Rx cholecalciferol (vitamin D3) 25 1,000 units PO DAILY #30 cap 10/16/18 09/17/19 Rx mcg (1,000 unit) capsule ferrous sulfate 325 mg (65 mg 325 mg PO BID #180 tab 10/16/18 09/17/19 Rx iron) tablet isosorbide mononitrate 120 mg 120 mg PO DAILY #90 tab 10/16/18 09/17/19 Rx tablet,extended release 24 hr pen needle, diabetic 30 gauge x #100 ea 10/16/18 09/17/19 Rx 5/16" losartan 50 mg tablet 50 mg PO DAILY #90 tab 12/20/18 09/17/19 Rx allopurinol 300 mg tablet 300 mg PO DAILY #90 tab 01/09/19 09/17/19 Rx levothyroxine 100 mcg tablet 100 mcg PO DAILY 01/29/19 09/17/19 History torsemide 20 mg tablet 80 mg PO DAILY tab 01/29/19 09/17/19 History gabapentin 300 mg capsule 300 mg PO HS #90 cap 04/21/19 09/17/19 Rx colchicine 0.6 mg capsule 0.6 mg PO DAILY #30 cap 05/02/19 09/17/19 Rx calcitriol 0.5 mcg capsule 0.5 mcg PO UD #45 cap 08/19/19 09/17/19 Rx acetaminophen [Tylenol Extra 500 mg PO Q6H PRN 09/17/19 09/17/19 History Strength] omeprazole 20 mg PO DAILY #90 cap 09/18/19 09/17/19 Rx 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 Vitamin D deficiency (Chronic) Surgical History History of arthroscopy of knee History of decompression of median nerve History of nasal septoplasty History of shoulder surgery History of tonsillectomy and adenoidectomy History of total shoulder replacement Hx of CABG Status post coronary artery stent placement Status post lumbar spine surgery for decompression of spinal cord Family History Mother Hypertension Cardiac disorder Acute myocardial infarction Daughter Breast cancer Brother Diabetes Hypertension Myocardial infarction Cardiac disorder Bipolar disorder Social History Preferred Language: Greek Communication Ability: Effective Hearing Ability: Use of Hearing Aid Beater And Pulper Feeder Required: No Beliefs That Will Affect Care: None marital status: Current Living Situation: Spouse Feels Safe at Home: Yes Smoking Status: Never smoker Second Hand Exposure: No ; Hx Alcohol Use: No Hx Substance Use: No Childhood Exposure to Second-Hand Smoke: No Seatbelt Use: always Sunscreen Use: No Review of Systems Review of Systems: All systems reviewed & are unremarkable except as noted in HPI & below Constitutional: no fever, no chills and no malaise Eyes: no blind spots Respiratory: no cough and no dyspnea Cardiovascular: no chest pain, no palpitations and no edema Gastrointestinal: no abdominal pain, no constipation and no diarrhea/loose stools Physical Exam Constitutional: WD/WN, vitals as above Eyes: PERRL, conjunctivae normal, anicteric sclerae ENMT: external ear and nose normal, oropharynx normal Neck: trachea midline, no thyromegaly normal visual inspection Respiratory: normal respiratory effort Auscultation: + crackles (bilateral bases); no rhonchi and no wheezes Cardiovascular: Sinus rhythm with ectopic beats, no murmurs, 2+ pitting edema bilateral lower extremities left greater than right Gastrointestinal (Abdomen): normal bowel sounds, soft, nontender, no hepatosplenomegaly Musculoskeletal: no cyanosis or clubbing, extremities motor strength 5/5 Skin: no rashes, warm and dry Neurologic: AAOx3, normal speech. PERRLA, EOMI, no nystagmus. Normal visual acuity bilaterally. Bilateral UE, LE, and face without sensory or motor deficits. II-XII intact bilaterally. No pronator drift. No tremor. Psychiatric: A+Ox3, euthymic affect Results & Data Results & Data ([facility]) Vital Signs (Past 12 Hours) Vital Signs Temp Pulse Resp BP Pulse Ox 09/17/19 20:01 60 20 98 09/17/19 20:00 57 L 18 155/81 H 99 09/17/19 19:30 57 L 17 157/76 H 94 09/17/19 19:03 87 L 09/17/19 19:00 58 L 17 160/76 H 91 09/17/19 18:32 62 17 95 09/17/19 18:31 62 20 156/98 H 91 09/17/19 18:00 63 18 167/99 H 09/17/19 17:54 61 24 167/104 H 09/17/19 17:27 37 C 78 18 179/89 H 100 Supervising Physician Co-Signing Physician Notes Attending addendum: I have physically seen this patient, have supervised the medical residents activities, and agree with the H&P unless as otherwise noted. Assessment and Plan: Dysarthria- Patient reports difficulty with speech, that persisted through the evening, and was gone about time he woke up in the morning. CT head negative Order CTA head and neck, and MRI brain. Aspirin 81 mg p.o. daily. Stroke order set Unstable angina/atrial fibrillation/CHF/hypertension- The patient will be admitted to telemetry for serial cardiac enzymes, serial EKG's, cardiac rhythm monitoring and a 2-D echocardiogram with Dopplers. Continue aspirin, amlodipine, torsemide 80 mg daily. Hold Imdur, and favor of Nitropaste 1 inch anterior chest wall every 6 hours. Hyperlipidemia- Continue atorvastatin 80 mg daily Check a fasting lipid panel Diabetes mellitus- Placed on Accu-Cheks before meals and at bedtime with NovoLog coverage for scale. Check a hemoglobin A1c. Remaining orders and notations as noted. Resident Activity Tracking Resident Involvement: Resident Care Provided Care Provided: Adult [facility] Medicine
[2019-09-17] MEDS ORDERED: GLUCOSE 10 TABS/TUBE PO PRN (22:48)
[2019-09-17] MEDS ORDERED: ACETAMINOPHEN 325 MG TAB PO PRN (22:48)
[2019-09-17] MEDS ORDERED: POLYETHYLENE (MIRALAX) 17 GM PACK PO PRN (22:48)
[2019-09-17] MEDS ORDERED: FUROSEMIDE 40 MG/4 ML VIAL IV STA (22:48)
[2019-09-17] MEDS ORDERED: GLUCOSE 40% GEL 15 GM TUBE PO PRN (22:48)
[2019-09-17] MEDS ORDERED: GABAPENTIN 300 MG CAP PO SCH (22:48)
[2019-09-17] MEDS ORDERED: PHARMACIST DISCHARGE MED REC CONSULT PRN (22:48)
[2019-09-17] MEDS ORDERED: DEXTROSE 50% 50 ML SYRINGE IV PRN (22:48)
[2019-09-17] MEDS ORDERED: GLUCAGON FOR INJ 1 MG VIAL SQ PRN (22:48)
[2019-09-17] MEDS ORDERED: ONDANSETRON INJ 2 MG/ML 2 ML VIAL IV PRN (22:48)
[2019-09-17] MEDS ORDERED: PANTOprazole 40 MG TAB PO PRN (22:48)
[2019-09-17] MEDS ORDERED: CARBOHYDRATES FOR HYPOGLYCEMIA PO PRN (22:48)
[2019-09-18] MEDS: NITROGLYCERIN 2% OINTMENT 30GM TUBE EXT SCH ×2 (00:31→05:56)
[2019-09-18] MEDS: FERROUS SULFATE 325 MG TAB PO SCH ×2 (00:33→07:48)
[2019-09-18] MEDS ORDERED: FUROSEMIDE 40 MG/4 ML VIAL IV STA (01:13)
[2019-09-18] MEDS: INSULIN ASPART 100 UNITS/ML 3 ML PEN SC SCH ×3 (01:17→12:09)
[2019-09-18] MEDS ORDERED: LEVOTHYROXINE SODIUM 100 MCG TABLET PO SCH (06:30)
--- NOTE | 2019-09-18 07:11 | Ultrasound Report ---
ULTRASOUND OF THE CAROTID ARTERIES CLINICAL HISTORY: Dysarthria. COMPARISON STUDY: No priors. TECHNIQUE: Real-time, grayscale, and color Doppler sonography of the carotid arteries is performed. I mages are reviewed in the transverse and longitudinal planes. FINDINGS: Blood pressure in the right arm measures 175/79 and blood pressure in the left arm measures 177/76. The carotid arteries are patent bilaterally and demonstrate antegrade flow. There is mild to moderate echogenic shadowing atherosclerotic plaque seen bilaterally. Normal doppler arterial waveforms are s een throughout. Velocity measurements are listed below. Common carotid peak systolic velocity (cm/sec): RIGHT: 81 LEFT: 101 ICA proximal peak systolic velocity (cm/sec): RIGHT: 62 LEFT: 62 ICA mid peak systolic velocity (cm/sec): RIGHT: 58 LEFT: 116 ICA distal peak systolic velocity (cm/sec): RIGHT: 37 LEFT: 60 ICA/CC peak systolic ratio: RIGHT: 0.8 LEFT: 1.1 Antegrade flow was shown in the vertebral arteries. The external carotid arteries are patent. IMPRESSION: 1. There is no sonographic evidence of hemodynamically significant stenosis in the right or left disla tid arterial system. 2. Antegrade flow is shown in the vertebral arteries. ACT 112: Negative or not required by law. Electronically signed by: Vj Palmer M.D. 09/18/2019 7:10 AM
--- NOTE | 2019-09-18 07:34 | CT Scan Report ---
CT OF THE HEAD WITHOUT CONTRAST CLINICAL HISTORY: dysarthria COMPARISON STUDY: Head CT and MRI of the brain May 31, 2017. CT DOSE: 537.48 mGy.cm TECHNIQUE: Helical axial images of the head were obtained without IV contrast. Automated exposure con trol was utilized for the study. A dose lowering technique was utilized adhering to the principles o f ALARA. FINDINGS: No acute intracranial hemorrhage, midline shift or mass effect is present. The ventricular system is unremarkable. The basilar cisterns are patent. No extra-axial collections are present. Ther e are no findings to suggest acute dural sinus thrombosis or acute territorial infarct. No significan t calvarial abnormalities are present. Visualized portions of the sinuses and mastoid air cells are c lear. White matter hypodensities suggest small vessel disease. IMPRESSION: No acute intracranial findings. ACT 112: Negative or not required by law. Electronically signed by: Juan Luis Pinto M.D. 09/18/2019 7:33 AM
[2019-09-18 07:43] LABS: Basophils # (auto) 0.01 K/uL (0-0.2); Basophils % (auto) 0.2 %; Eosinophils # (auto) 0.47 K/uL (0-0.5); Eosinophils % (auto) 8.5 %; Hematocrit (blood only) 31.6 % (42-52); Hemoglobin 10.6 g/dL (14.0-18.0); Immature Granulocytes # (auto) 0.01 K/uL (0.00-0.02); Immature Granulocytes % (auto) 0.2 %; Lymphocytes # (auto) 1.84 K/uL (1.2-3.4); Lymphocytes % (auto) 33.5 %; Mean Corpuscular Hemoglobin 31.5 pg (25-34); Mean Corpuscular Hgb Conc 33.5 g/dL (32-36); Mean Platelet Volume 11.1 fL (7.4-10.4); Monocytes # (auto) 0.41 K/uL (0.11-0.59); Monocytes % (auto) 7.5 %; Neutrophils # (auto) 2.76 K/uL (1.4-6.5); Neutrophils % (auto) 50.1 %; Platelet Count 159 K/uL (130-400); RDW Coefficient of Variation 15.2 % (11.5-14.5); RDW Standard Deviation 51.9 fL (36.4-46.3); Red Blood Count 3.36 M/uL (4.7-6.1)
[2019-09-18 08:09] LABS: BUN Creatinine Ratio 13.6 (10-20); Calcium 8.9 mg/dl (8.5-10.1); Creatinine Clr Calc Pharmacy 19.4 ml/min; Est GFR (African American) 23.6; Est GFR (Non-African American) 20.4; Potassium 3.5 mmol/L (3.5-5.1)
[2019-09-18 08:10] LABS: Estimated Average Glucose 151 mg/dl; Hemoglobin A1C 6.9 % (4.5-5.6)
[2019-09-18] MEDS ORDERED: LOSARTAN POTASSIUM 50 MG TAB PO SCH (09:00)
[2019-09-18] MEDS ORDERED: HEPARIN SOD 5,000 UNIT/0.5 ML VIAL SQ SCH (09:00)
[2019-09-18] MEDS ORDERED: FUROSEMIDE 40 MG TAB PO SCH (09:00)
[2019-09-18] MEDS ORDERED: ASPIRIN 81 MG ECTAB PO SCH (09:00)
[2019-09-18] MEDS ORDERED: ATORVASTATIN 40 MG TAB PO SCH (09:00)
[2019-09-18] MEDS ORDERED: allopurinoL 300 MG TAB PO SCH (09:00)
[2019-09-18] MEDS ORDERED: ISOSORBIDE MONO EXTENDED REL 60 MG TABCR PO SCH (11:15)
[2019-09-18] MEDS ORDERED: AMLODIPINE BESYLATE 5 MG TAB PO SCH (11:15)
[2019-09-18] MEDS ORDERED: PANTOprazole 40 MG TAB PO SCH (11:15)
[2019-09-18] MEDS ORDERED: STROKE PATIENT DISCHARGE STA (11:22)
--- NOTE | 2019-09-18 11:27 | Discharge Summary ---
Date of Service September 18, 2019 Admission HPI Per Admitting Provider 84 yo M PMHx DM2, CKD stage III with baseline Cr 2.2, hypothyroidism, HLD, CHF, HTN presented to the ED for one episode of chest pain described as midsternal chest pressure and discomfort that lasted for 30 minutes starting at 3:30 PM today. This occurred while he was watching TV and sitting down, without any associated shortness of breath, diaphoresis, nausea, vomiting, dizziness, no radiation to the jaw or arm. This was not associated with food or with change in position. Came to the ED via personal vehicle. Patient does not have a history of chest pain in the past, but has had a bypass in the past as well as several stents. Follows with Dr. Collado with cardiology. In the ED was chest pain-free, EKG showed numerous PVCs but no ST or T wave changes, initial troponin was negative, chest x-ray showed cardiomegaly and mild pulmonary vascular congestion. Creatinine was found to be 3.13. Hospitalist service was consulted for admission. On my interview patient reports that he is still chest pain-free, and has no other symptoms. During discussion he stated that last night after supper he had some "difficulty getting the words to come out even though I knew what I wanted to say". This was not associated with any weakness of his arms or legs bilaterally, no difficulty swallowing, no difficulty with balance, no visual changes, no headache or dizziness, no other symptoms. Went to sleep shortly t hereafter and woke up without symptoms. No prior history of CVA, TIA, migraine. Patient's family history is significant for hypertension and SD, but no CVA. At time of my interview patient does not report any further difficulty with speech. Principal Diagnosis Chest pain-noncardiac RUBIO Discharge Exam Constitutional WD/WN, vitals as above Eyes + anicteric sclerae Neck trachea midline, no thyromegaly Respiratory normal respiratory effort Auscultation: + crackles (bibasilar); no rhonchi and no wheezes Cardiovascular Rate/Rhythm: regular rate and regular rhythm Heart Sounds: no murmur Extremities: + edema (1+ pitting edema legs bilat) Chest (Breasts) Chest: + abnormal inspection of chest (midline sternotomy scar) Gastrointestinal (Abdomen) normal bowel sounds, soft, nontender, no hepatosplenomegaly Musculoskeletal Extremities: extremities normal to inspection; no cyanosis and no clubbing Skin no rashes, warm and dry Neurologic moves all extremities and awake; no focal motor deficits Psychiatric A+Ox3, euthymic affect Lymphatic no lymphedema Discharge Data Allergies Allergy/AdvReac Type Severity Reaction Status Date / Time adhesive AdvReac Intermediate TEARS SKIN Verified 09/17/19 19:15 WITH TAPE-ARMS colestipol AdvReac Mild Sleepiness Verified 09/17/19 19:15 simvastatin AdvReac Mild Sleepiness Verified 09/17/19 19:15 morphine AdvReac Unknown CONFUSION Verified 09/17/19 19:15 Consultations 09/17/19 19:33 ED Decision to Admit Stat 09/17/19 22:48 Consult Case Management - Discharge Planning Routine 09/18/19 08:37 Consult Cardiology Routine Ordered Studies 09/17/19 21:29 CT head/brain wo con Urgent US carotid doppler BI Urgent ECHO CXR Hospital Course (1) Precordial chest pain: This pt is an 84 yo M PMHx DM2, CKD stage III with baseline Cr 2.2, CAD s/p CABG and stents, hypothyroidism, HLD, chronic diastolic CHF, HTN, paroxysmal AFib admitted with chest pain, RUBIO, and suspected dysarthria Chest pain - came on after eating tomatoes, hot dog, while lying flat. Went away after 25 min, left sided, nonradiating, atypical chest pain. Serial trop neg x 3, ECHO without WMAs and preserved EF, tele with ectopy and sinus deisi, ECG without acute ischemia. Likely GERD related, noncardiac. Seen by Cardiology here-no need for further cardiac testing. - dc to home on same cardiac meds and start taking PPI daily rather than prn Dysarthria- pt describes this more as a whispering voice/hoarse voice, not dysarthria. CT head noncon neg, carotid US negative. Suspect hoarse voice from acid reflux as well -start PPI RUBIO on CKD stage III: - Patient's baseline creatinine 2.2. - On admission creatinine is 3.13, patient appeared mildly fluid overloaded, RUBIO was likely due to poor perfusion from fluid overload and improved to 2.7 with IV lasix x 1 -follow as outpt with PCP and/or Nephro DM2: - Most recent hemoglobin A1c 6.9% in July. - pt reports he stopped taking glimiperide at home as he was having frequent hypoglycemia -given renal failure, would recommend discontinuing glimiperide and use diet modification -follow up with PCP Chronic EF preserved CHF, Right sided CHF-with mild RV dysfunction on ECHO: - Pt with CXR and physical exam findings suggestive of mild to moderate fluid overload on admission Edema improved by the next day after IV lasix x 1, no SOB, has not gained weight recently -continue home torsemide 80mg daily Hypothyroidism: - Continue home levothyroxine mcg daily. HTN: BPs here quite elevated after his amlodipine and Imdur were held despite having nitropaste on -dc nitropaste, restart home Imdur and amlodipine prior to discharge - Continue losartan -cannot tolerate beta blockers due to bradycardia PAF_unclear of history of this--> none here on tele not on AC CAD-stable, h/o stents and CABG -continue ASA, statin, cannot jarad beta carlos as above for bradycardia Code Status: FULL CODE Stable for dc to home (2) RUBIO (acute kidney injury): (3) Coronary arteriosclerosis: (4) Dysarthria: (5) Type 2 diabetes mellitus with renal complication: (6) Esophageal reflux: (7) Congestive heart failure, unspecified: (8) Hyperlipidemia: (9) Hypothyroidism: (10) Vitamin D deficiency: (11) Benign essential hypertension: (12) Stage III chronic kidney disease: (13) DVT prophylaxis: Total Time Total Time Spent Total Time Spent (In Minutes): >30 min Total Time Includes: Examination of the Patient, Discharge Planning, Medication Reconciliation and Communication With Other Providers (Cardiology) Discharge Plan Discharge Items Patient Disposition: Home - Self-Care Reason For Visit: CHEST PAIN Discharge Diagnosis: Chest [id number] Condition on Discharge: Good Activity: As commented below Bathing: No limitations Exercise/Sports: As tolerated Non-emergency contact: Primary Care Provider Call non-emergency contact if: you have any medication questions and your symptoms worsen Follow-up/Referrals: Vj Malone MD [Primary Care Provider] - (Please follow up within 1-2 weeks.) Diet: Carb Consistent or DM2 and Low Sodium (2gm) Addtl Attending Provider Instructions: You were admitted with chest pain that was likely due to indigestion. The testing done here showed that you did not have a heart attack. You should start taking your Prilosec on a daily basis every morning for the next 2 weeks. Do not lie down flat after eating for at least 1 hour, and avoid spicy foods and tomato-based foods. Acid reflux could have also caused your difficulty with your speech with the "whispering" speech. Pending Studies at Discharge: No Stand-Alone Forms: [facility] Medications and DC Order Prescriptions: Continued allopurinol 300 mg tablet 300 mg PO DAILY Qty: 90 RF: 3 gabapentin 300 mg capsule 300 mg PO HS Qty: 90 RF: 3 losartan 50 mg tablet 50 mg PO DAILY Qty: 90 RF: 3 levothyroxine 100 mcg tablet 100 mcg PO DAILY RF: 0 torsemide 20 mg tablet 80 mg PO DAILY RF: 0 calcitriol 0.5 mcg capsule 0.5 mcg PO UD Qty: 45 RF: 3 colchicine 0.6 mg capsule 0.6 mg PO DAILY Qty: 30 RF: 11 amlodipine 10 mg tablet 10 mg PO DAILY Qty: 90 RF: 3 aspirin [Adult Low Dose Aspirin] 81 mg tablet,delayed release (DR/EC) 81 mg PO DAILY Qty: 90 RF: 3 atorvastatin 80 mg tablet 80 mg PO DAILY Qty: 90 RF: 3 (DME) Contour Test Strips strip See Dose Instructions .ROUTE .MEDSUPPLY Qty: 100 RF: 3 ferrous sulfate 325 mg (65 mg iron) tablet 325 mg PO BID Qty: 180 RF: 3 isosorbide mononitrate 120 mg tablet extended release 24 hr 120 mg PO DAILY Qty: 90 RF: 3 (DME) CareFine Pen Needle 30 gauge x 5/16" needle See Dose Instructions .ROUTE .MEDSUPPLY Qty: 100 RF: 0 cholecalciferol (vitamin D3) 1,000 unit capsule 1,000 units PO DAILY Qty: 30 RF: 0 acetaminophen [Tylenol Extra Strength] 500 mg tablet 500 mg PO Q6H PRN (Reason: Pain) RF: 0 Changed omeprazole 20 mg capsule,delayed release(DR/EC) 20 mg PO DAILY Qty: 90 RF: 3 Discontinued glimepiride 4 mg tablet See Rx Instructions PO BID Qty: 0 RF: 3 Discharge Orders: Discharge Order (Routine); Ordered 09/18/19 Ordered By: Arianna Almanzar Admission Data Admit Date/Time: 09/17/19 21:17 Attending Provider: Arianna Almanzar Admit Provider: Sima Hugo Primary Care Provider: Vj Malone Other Providers: Emmett Palafox ; Magno Shaw Coding Level of Care Code 05787 OBS Care - Discharge Diagnoses Precordial chest pain R07.2 RUBIO (acute kidney injury) N17.9 Coronary arteriosclerosis I25.10 Dysarthria R47.1 Type 2 diabetes mellitus with renal complication E11.29 Esophageal reflux K21.9 Congestive heart failure, unspecified I50.9 Hyperlipidemia E78.5 Hypothyroidism E03.9 Vitamin D deficiency E55.9 Benign essential hypertension I10 Stage III chronic kidney disease N18.3 DVT prophylaxis Z29.9
--- NOTE | 2019-09-18 14:03 | Cardiology Consultation ---
Date of Consultation September 18, 2019 Assessment & Plan (1) Chest pain: (2) Esophageal reflux: (3) Atrial fibrillation: (4) Stage III chronic kidney disease: (5) Coronary arteriosclerosis: Given his description of the discomfort along with his diet of highly acidic food, lack of ischemic changes on EKG and blood work along with normal wall motion on echocardiogram I do believe his chest discomfort is secondary to GERD. His outpatient medical regimen will be restarted And further treatment of his GERD will be determined by the primary team. [facility] office will call to arrange follow-up after discharge. Okay to discharge home from a cardiac standpoint History of Present Illness Reason for Consultation: Chest discomfort Requesting Physician: Dr. Almanzar Attending Physician: Arianna Almanzar MD History of Present Illness It was my pleasure to see Mr. Swartz in consultation today September 18, 2019. He is a very pleasant 84-year-old gentleman who routinely follows with Dr. Collado of the [facility] practice. He presented to [facility] emergency department with complaints of chest discomfort. He states that he was doing some chores in the yard to help his son he started to feel tired and went in the house to rest. After he was sitting in his comfortable chair for several minutes he developed a chest discomfort. He described it as a dull achy sensation across his left sternal border. He denied any associated symptoms with this specifically denying any radiation of the discomfort, shortness of breath, diaphoresis, nausea, palpitations, lightheadedness, dizziness or syncope. He states he did not believe he ever had a similar pain in the past. The discomfort lasted for approximately 20 minutes and then resolved on its own. Upon arrival to the emergency department his ischemic work-up was unremarkable including preserved LV systolic function without regional wall motion on echocardiogram. Upon further questioning, the patient states he is not been taking his outpatient H2 carlos for GERD in quite some time. For breakfast the day of presentation he had stewed tomatoes and then for lunch she had a hot dog with catch up and onions. Past medical history as per most recent outpatient office visit note: 1. Chronic diastolic (congestive) heart failure (HCC) 2. Atherosclerosis of [place] coronary artery of [place] heart without angina pectoris 3. HTN, goal below 140/90 4. Paroxysmal atrial fibrillation (HCC) 5. Pulmonary hypertension (HCC) Allergies Allergy/AdvReac Type Severity Reaction Status Date / Time adhesive AdvReac Intermediate TEARS SKIN Verified 09/17/19 19:15 WITH TAPE-ARMS colestipol AdvReac Mild Sleepiness Verified 09/17/19 19:15 simvastatin AdvReac Mild Sleepiness Verified 09/17/19 19:15 morphine AdvReac Unknown CONFUSION Verified 09/17/19 19:15 Home Medications Home Medications Medication Instructions Recorded Confirmed Type amlodipine 10 mg tablet 10 mg PO DAILY #90 tab 10/16/18 09/17/19 Rx aspirin 81 mg tablet,delayed 81 mg PO DAILY #90 tab 10/16/18 09/17/19 Rx release atorvastatin 80 mg tablet 80 mg PO DAILY #90 tab 10/16/18 09/17/19 Rx blood sugar diagnostic #100 ea 10/16/18 09/17/19 Rx cholecalciferol (vitamin D3) 25 1,000 units PO DAILY #30 cap 10/16/18 09/17/19 Rx mcg (1,000 unit) capsule ferrous sulfate 325 mg (65 mg 325 mg PO BID #180 tab 10/16/18 09/17/19 Rx iron) tablet isosorbide mononitrate 120 mg 120 mg PO DAILY #90 tab 10/16/18 09/17/19 Rx tablet,extended release 24 hr pen needle, diabetic 30 gauge x #100 ea 10/16/18 09/17/19 Rx 5/16" losartan 50 mg tablet 50 mg PO DAILY #90 tab 12/20/18 09/17/19 Rx allopurinol 300 mg tablet 300 mg PO DAILY #90 tab 01/09/19 09/17/19 Rx levothyroxine 100 mcg tablet 100 mcg PO DAILY 01/29/19 09/17/19 History torsemide 20 mg tablet 80 mg PO DAILY tab 01/29/19 09/17/19 History gabapentin 300 mg capsule 300 mg PO HS #90 cap 04/21/19 09/17/19 Rx colchicine 0.6 mg capsule 0.6 mg PO DAILY #30 cap 05/02/19 09/17/19 Rx calcitriol 0.5 mcg capsule 0.5 mcg PO UD #45 cap 08/19/19 09/17/19 Rx acetaminophen [Tylenol Extra 500 mg PO Q6H PRN 09/17/19 09/17/19 History Strength] omeprazole 20 mg PO DAILY #90 cap 09/18/19 09/17/19 Rx Patient History Medical History Atrial fibrillation (Acute) Benign essential hypertension (Chronic) Congestive heart failure, unspecified (Acute) Diabetes (Inactive) Esophageal reflux (Acute) Hyperlipidemia Hypothyroidism Lumbar radiculopathy (Acute) Medicare annual wellness visit, subsequent Pneumonia Secondary hyperparathyroidism of renal origin (Chronic) Stage III chronic kidney disease 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 Vitamin D deficiency (Chronic) Surgical History History of arthroscopy of knee History of decompression of median nerve History of nasal septoplasty History of shoulder surgery History of tonsillectomy and adenoidectomy History of total shoulder replacement Hx of CABG Status post coronary artery stent placement Status post lumbar spine surgery for decompression of spinal cord Family History Mother Hypertension Cardiac disorder Acute myocardial infarction Daughter Breast cancer Brother Diabetes Hypertension Myocardial infarction Cardiac disorder Bipolar disorder Social History Preferred Language: Romansh Communication Ability: Effective Hearing Ability: Use of Hearing Aid Wax Room Supervisor Required: No Beliefs That Will Affect Care: None marital status: Current Living Situation: Spouse Other Information That Helps Us Care for You: No Feels Safe at Home: Yes Safety Concerns: Feels Safe At This Time Smoking Status: Never smoker Second Hand Exposure: No ; Hx Alcohol Use: No Hx Substance Use: No Childhood Exposure to Second-Hand Smoke: No Seatbelt Use: always Sunscreen Use: No Review of Systems Review of Systems: All systems reviewed & are unremarkable except as noted in HPI & below Physical Exam Physical Exam: General: Awake, alert and oriented x 3. No acute distress. HEENT: Normocephalic, atraumatic. Pupils equal, round and reactive to light and accommodation. Extraocular muscles are intact. Anicteric sclera. Moist mucous membranes. Neck: No JVD. No bruit. Cardiovascular: Regular. Positive S-4. Normal S-1 and S-2. No S-3. 3/6 mid to late systolic ejection murmur, greatest at the right sternal border, second intercostal space with radiation to the bilateral carotids. No rubs. Pulmonary: Clear to auscultation bilaterally. No rales, rhonchi, or wheezing. Abdomen: Bowel sounds x 4, soft. No rebound, guarding or tenderness. No organomegaly. Extremities: No clubbing, cyanosis or edema. +2 pedal pulses bilaterally. Skin: Warm and dry. Results & Data ([facility]) Vital Signs (Past 12 Hours) Vital Signs Temp Pulse Pulse Resp BP Pulse Ox 09/18/19 12:08 36.4 C L 59 L 19 176/87 H 97 09/18/19 11:35 36.6 C 64 19 182/79 H 95 09/18/19 08:00 52 L 09/18/19 07:38 36.6 C 64 19 193/85 H 95 09/18/19 03:51 36.7 C 55 L 16 162/64 H 95
--- NOTE | 2019-09-18 17:03 | Electrocardiogram Report ---
Test Reason : Blood Pressure : / mmHG Vent. Rate : 073 BPM Atrial Rate : 057 BPM P-R Int : 000 ms QRS Dur : 088 ms QT Int : 454 ms P-R-T Axes : 000 -04 061 degrees QTc Int : 500 ms Sinus rhythm with PVCs in a pattern of ventricular bigeminy Nonspecific ST abnormality Prolonged QT Abnormal ECG When compared with ECG of 09-SEP-2017 20:14, T wave inversion no longer evident in Anterior leads QT has shortened There is now ventricular bigeminy Confirmed by Wiley Garcias ([id number]) on 09/18/2019 5:02:53 PM Referred By: REFERRED SELF Confirmed By:Jamar Garcias
--- NOTE | 2019-09-18 17:09 | Electrocardiogram Report ---
Test Reason : Blood Pressure : / mmHG Vent. Rate : 056 BPM Atrial Rate : 056 BPM P-R Int : 194 ms QRS Dur : 092 ms QT Int : 524 ms P-R-T Axes : 063 -10 077 degrees QTc Int : 505 ms Sinus bradycardia Nonspecific T wave abnormality Prolonged QT Abnormal ECG When compared with ECG of 17-SEP-2019 17:38, (unconfirmed) PVCs are resolved Confirmed by Wiley Garcias ([id number]) on 09/18/2019 5:09:12 PM Referred By: REFERRED SELF Confirmed By:Jamar Garcias
--- NOTE | 2019-09-19 01:10 | Billing Data ---
Date of Service September 19, 2019 Coding Level of Care Code 82806 Initial Inpt Care Lvl 3
== END 2019-09-18 14:08 | disposition home or self-care (01) ==
LOC: 2S 17:24 → ED 17:24 → SUATTDRO 21:17 → 2S 22:54